=== PATIENT | female | born 1965 | race Caucasian/White ===

== ENCOUNTER 2020-11-15 14:28 | Inpatient (IN) | payer OTHER ==
[~2020-11-15] VITALS: Ht 163.8 cm; Wt 67.9 kg
[2020-11-15 14:50] LABS: ABG BASE EXCESS -2.3 MMOL/L (-2.5-2.5); ABG OXYGEN SATURATION 93 % (94-100); ABG PCO2 31 MMHG (35-45); ABG PH 7.45 (7.37-7.43); ABG PO2 66 MMHG (79-93); ABG TCO2 22.1 MMOL/L (21.0-31.0)
[2020-11-15 14:51] LABS: ALLENS TEST POSITIVE; INSPIRED O2 4 L; PATIENT TEMP 37; VENTILATOR NO
[2020-11-15] MEDS ORDERED: CEFEPIME INJECTION 1,000 MG in WATER (STERILE) FOR INJECTION 10 ML IV ONE (15:00)
[2020-11-15] MEDS ORDERED: NS IV 500 ML 500 ML IV ONE (15:00)
[2020-11-15] MEDS ORDERED: VANCOMYCIN INJECTION 1,250 MG in NS (IVPB) 250 ML IV ONE (15:00)
[2020-11-15] MEDS ORDERED: NS IV 1000 ML 1,000 ML IV SCH (15:00)
--- NOTE | 2020-11-15 15:00 | ED Respiratory ---
General Chief Complaint: Respiratory Problems Stated Complaint: SOB Nursing Triage Note: PT BROUGHT IN BY [facility] FROM [facility] FOR SOA AND LOW O2. PT WAS 71% ON RA ON ARRIVAL TO [facility]. PT IS 86% ON 2LNC ON ARRIVAL TO ED. PT STATES SHE HAS BEEN SOA FOR A MONTH. Source: patient Exam Limitations: no limitations History of Present Illness Date Seen by Provider: Nov 15, 2020 Time Seen by Provider: 14:30 Initial Comments Patient to the ER by EMS from her primary care provider with chief complaint that her PCP noticed that she was having difficulty breathing and oxygen satura tions in the 80s. She was there to do a checkup. She has been on steroids recently and recently had a case of shingles. She is having some low back pain which she associates with her coughing. She says for the past week she is having all shortness of air and coughing but did not think much of it. She has a history of hemolytic anemia and has needed transfusions in the past month or 2 was at [facility] getting transfusions. She has a thick sputum produced by her cough. She has not had any fevers or chills. No known sick contacts. She had a Covid swab at the clinic prior to coming out and was normal. EMS transported her on 4 L and set her oxygen saturations were 90 to 92%. She is not on a blood thinner and denies a history of blood clots. 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 The patient does not require supplemental oxygen at baseline. Primary care through [facility]. The patient wishes to be a full code and if she needs to be intubated she is okay with this. Allergies and Home Medications Allergies Coded Allergies: No Known Drug Allergies (Unverified , 11/15/20) Patient Home Medication List Home Medication List Reviewed: Yes Review of Systems Review of Systems Constitutional: No chills, No diaphoresis EENTM: No hearing loss, No blurred vision Respiratory: cough, phlegm, short of breath; No wheezing Cardiovascular: No chest pain, No edema, No Hx of Intervention, No palpitations Gastrointestinal: No abdominal pain; nausea; No vomiting Genitourinary: No discharge, No dysuria Musculoskeletal: back pain; No joint pain All Other Systems Reviewed Negative Unless Noted: Yes Past Fyqkjba-Hkgruv-Cuvrsh Hx Patient Social History Tobacco Use?: No Substance use?: No Alcohol Use?: No Pt feels they are or have been: No Past Medical History Surgery/Hospitalization HX: [facility] Physical Exam Vital Signs - First Documented 11/15/20 14:28 Temp 37.0 Pulse 92 Resp 42 B/P (MAP) 101/64 (76) Pulse Ox 95 O2 Delivery OxyMask O2 Flow Rate 10.00 Capillary Refill : Greater Than 3 Seconds Height: '" Weight: lbs. oz. kg; 23.00 BMI Method: General Appearance: moderate distress, other (Chronically ill) Eyes: Bilateral Eye Normal Inspection, Bilateral Eye PERRL, Bilateral Eye EOMI HEENT: PERRL/EOMI; No pharynx normal (Oropharynx is mildly dry) Neck: full range of motion, normal inspection Respiratory: lungs clear, normal breath sounds, respiratory distress (Moderate respiratory distress 25 to 30 breaths/min, oxygen saturations in the mid to high 80s on 4 L); No crackles, No rales, No wheezing Cardiovascular: normal peripheral pulses, regular rate, rhythm, no edema, no JVD Gastrointestinal: non tender, soft Neurologic/Psychiatric: alert, normal mood/affect, oriented x 3 Skin: other (Dark, almost hemosiderin stained skin with various old scars and scaly, effervescent rash on the back.) Focused Exam Sepsis Stage: Sepsis Possible Source: Pulmonary Lactate Level 11/15/20 14:38: Lactic Acid Level 0.93 Time of Focused Exam: 17:04 Respiratory: Lungs Clear, No Accessory Muscle Use, Decreased Breath Sounds, Respiratory Distress (mod) Lactic Acid Level Laboratory Tests Test 11/15/20 14:38 Lactic Acid Level 0.93 MMOL/L (0.50-2.00) Progress/Results/Core Measures Suspected Sepsis SIRS Temperature: Pulse: 92 Respiratory Rate: 42 Laboratory Tests 11/15/20 14:38: White Blood Count 13.7H Blood Pressure 101 /64 Mean: 76 11/15/20 14:38: Lactic Acid Level 0.93 Laboratory Tests 11/15/20 14:38: Creatinine 0.75, INR Comment 1.3, Platelet Count 367, Total Bilirubin 0.5 Results/Orders Lab Results Laboratory Tests Test 11/15/20 14:38 Range/Units White Blood Count 13.7 H 4.3-11.0 10^3/uL Red Blood Count 3.13 L 3.80-5.11 10^6/uL Hemoglobin 8.0 L 11.5-16.0 g/dL Hematocrit 27 L 35-52 % Mean Corpuscular Volume 86 80-99 fL Mean Corpuscular Hemoglobin 26 25-34 pg Mean Corpuscular Hemoglobin Concent 30 L 32-36 g/dL Red Cell Distribution Width 19.7 H 10.0-14.5 % Platelet Count 367 130-400 10^3/uL Mean Platelet Volume 8.0 L 9.0-12.2 fL Immature Granulocyte % (Auto) 2 % Neutrophils (%) (Auto) 87 H 42-75 % Lymphocytes (%) (Auto) 6 L 12-44 % Monocytes (%) (Auto) 3 0-12 % Eosinophils (%) (Auto) 2 0-10 % Basophils (%) (Auto) 0 0-10 % Neutrophils # (Auto) 11.9 H 1.8-7.8 X 10^3 Lymphocytes # (Auto) 0.8 L 1.0-4.0 X 10^3 Monocytes # (Auto) 0.4 0.0-1.0 X 10^3 Eosinophils # (Auto) 0.3 0.0-0.3 10^3/uL Basophils # (Auto) 0.0 0.0-0.1 10^3/uL Immature Granulocyte # (Auto) 0.3 H 0.0-0.1 10^3/uL Neutrophils % (Manual) 91 % Lymphocytes % (Manual) 3 % Monocytes % (Manual) 1 % Eosinophils % (Manual) 2 % Myelocytes % 1 % Band Neutrophils 2 % Hypochromasia SLIGHT Anisocytosis MODERATE Prothrombin Time 16.4 H 12.2-14.7 SEC INR Comment 1.3 0.8-1.4 Activated Partial Thromboplast Time 40 H 24-35 SEC D-Dimer 2.53 H 0.00-0.49 UG/ML Blood Gas Puncture Site LEFT RADIAL Blood Gas Patient Temperature 37 Arterial Blood pH 7.45 H 7.37-7.43 Arterial Blood Partial Pressure CO2 31 L 35-45 MMHG Arterial Blood Partial Pressure O2 66 L 79-93 MMHG Arterial Blood HCO3 21 L 23-27 MMOL/L Arterial Blood Total CO2 22.1 21.0-31.0 MMOL/L Arterial Blood Oxygen Saturation 93 L 94-100 % Arterial Blood Base Excess -2.3 -2.5-2.5 MMOL/L Jude Test POSITIVE Blood Gas Ventilator Setting NO Blood Gas Inspired Oxygen 4 L Sodium Level 130 L 135-145 MMOL/L Potassium Level 3.2 L 3.6-5.0 MMOL/L Chloride Level 101 98-107 MMOL/L Carbon Dioxide Level 18 L 21-32 MMOL/L Anion Gap 11 5-14 MMOL/L Blood Urea Nitrogen 10 7-18 MG/DL Creatinine 0.75 0.60-1.30 MG/DL Estimat Glomerular Filtration Rate 80 BUN/Creatinine Ratio 13 Glucose Level 84 70-105 MG/DL Lactic Acid Level 0.93 0.50-2.00 MMOL/L Calcium Level 9.7 8.5-10.1 MG/DL Corrected Calcium 10.7 H 8.5-10.1 MG/DL Total Bilirubin 0.5 0.1-1.0 MG/DL Aspartate Amino Transf (AST/SGOT) 28 5-34 U/L Alanine Aminotransferase (ALT/SGPT) 6 0-55 U/L Alkaline Phosphatase 74 40-136 U/L C-Reactive Protein High Sensitivity 20.37 H 0.00-0.50 MG/DL B-Type Natriuretic Peptide 32.5 <100.0 PG/ML Total Protein 6.8 6.4-8.2 GM/DL Albumin 2.8 L 3.2-4.5 GM/DL Procalcitonin 0.84 H <0.10 NG/ML My Orders Orders - NATHALIA FLORES Arterial Blood Gas (11/15/20 14:45) Cbc With Automated Diff (11/15/20 14:52) Comprehensive Metabolic Panel (11/15/20 14:52) Blood Culture (11/15/20 14:52) Sputum Culture (11/15/20 14:52) Urinalysis (11/15/20 14:52) Urine Culture (11/15/20 14:52) Protime With Inr (11/15/20 14:52) Partial Thromboplastin Time (11/15/20 14:52) Chest 1 View, Ap/Pa Only (11/15/20 14:52) Ed Iv/Invasive Line Start (11/15/20 14:52) Ed Iv/Invasive Line Start (11/15/20 14:52) Vital Signs Adult Sepsis Patie Q15M (11/15/20 14:52) O2 (11/15/20 14:52) Remove Rings In Anticipation O (11/15/20 14:52) Lactic Acid Analyzer (11/15/20 14:52) Ns Iv 1000 Ml (Sodium Chloride 0.9%) (11/15/20 15:00) Cefepime Injection (Maxipime Injection) (11/15/20 15:00) Vancomycin Injection (Vancomycin Injecti (11/15/20 15:00) Ed Iv/Invasive Line Start (11/15/20 14:52) Ns Iv 500 Ml (Sodium Chloride 0.9%) (11/15/20 15:00) Covid-19 External Lab Results (11/15/20 14:52) Manual Differential (11/15/20 14:38) BNP (11/15/20 15:34) Ct Angio Chest W (11/15/20 15:41) Procalcitonin (Pct) (11/15/20 16:00) Fibrin Degradation Products (11/15/20 16:00) Hs C Reactive Protein (11/15/20 16:00) Medications Given in ED Current Medications Medications Dose Ordered Sig/Lyn Route Start Time Stop Time Status Last Admin Dose Admin Cefepime HCl 1000 mg/Sterile Water 10 ml @ 200 mls/hr ONCE ONCE IV 11/15/20 15:00 11/15/20 15:02 DC 11/15/20 15:13 200 MLS/HR Sodium Chloride 500 ml @ 0 mls/hr Q0M ONCE IV 11/15/20 15:00 11/15/20 15:01 DC 11/15/20 15:12 0 MLS/HR Vancomycin HCl 1250 mg/Sodium Chloride 250 ml @ 210 mls/hr ONCE ONCE IV 11/15/20 15:00 11/15/20 16:11 DC 11/15/20 17:06 210 MLS/HR Vital Signs/I&O 11/15/20 11/15/20 14:28 14:38 Temp 37.0 Pulse 92 Resp 42 B/P (MAP) 101/64 (76) Pulse Ox 95 O2 Delivery OxyMask OxyMask O2 Flow Rate 10.00 10.00 Capillary Refill : Greater Than 3 Seconds Blood Pressure Mean: 76 Progress Note #1: Time: 14:58 Progress Note Patient is fairly profoundly hypoxic and we had to put her on 12 L by oxygen mask to maintain oxygen/in the mid 90s. It is improving. Heart rate is in the 90s to 100. Blood pressure is soft around 100/60 and she still breathing anywhere from 20 to 30 breaths a minute and becomes breathless when she has to speak more than 1 sentence. The language line was used. She says her son who accompanied her to the clinic knows more of her history and she is okay with us talking to him. Progress Note #2: Time: 15:40 Progress Note Should coverPatient's breathing about 20 breaths/min 97% on 12 L, comfortably resting. ABG reveals hypoxemia without any acidosis or respiratory CO2 retention. Suspicion for PE versus pneumonia but chest x-ray looks more like CHF. She did not have any JVD or peripheral edema but a BNP was added as well as will do a CT angiogram. She got about 1200 cc of fluid before we held her IV fluids. Initial fluid bolus of 1500 cc per a 20 cc/kg for her original septic work-up. Her son reveals further that she dropped her prednisone about a month ago because she start developing shingles. Her last admission was in March at [place]. Her hemoglobin is 8 which the son reveals is her baseline. Progress Note #3: Time: 16:57 Progress Note Chest x-ray concerning for heart failure initially and so because of patient's poor oxygenation status 40 mg Lasix was given which produced a good amount of urine. Unfortunately a CT scan revealed that her chest x-ray is more consistent with a pneumonia so we will give her a liter of fluids 250 hours since her blood pressure is borderline 100 systolic. Plan to initiate CPAP at 7 cm water pressure. ECG Initial ECG Impression Date: Nov 15, 2020 Initial ECG Impression Time: 14:00 Initial ECG Rate: 95 Initial ECG Rhythm: Normal Sinus Initial ECG Intervals: Normal Initial ECG Impression: Normal Comment Normal sinus rhythm without clinically relevant ST elevation or depression. Diagnostic Imaging Diagonstic Imaging: Xray Plain Films/CT/US/NM/MRI: chest Comments NAME: CASEYONEILLLALIT WALKER [facility] REC#: [id number] PT STATUS: REG ER : 1965 PHYSICIAN: NATHALIA FLORES MD ADMIT DATE: 11/15/20/ER Draft Date of Exam:11/15/20 CHEST 1 VIEW, AP/PA ONLY INDICATION: Sepsis. COMPARISON: None available. TECHNIQUE: Single frontal radiograph of the chest dated 11/15/2020. FINDINGS: The cardiac silhouette is enlarged. There is mild central pulmonary vascular congestion. Diffuse bilateral interstitial opacities are present with small volume pleural effusions. No pneumothorax. No acute osseous abnormality. Surgical clips within the right upper quadrant of the abdomen. IMPRESSION: Bilateral interstitial opacities and small volume pleural effusions. Findings are favored related to congestive heart failure with interstitial edema. Interstitial infiltrate is an additional consideration. Recommend clinical correlation with radiographic follow-up. Dictated on workstation # [id number] Dict: 11/15/20 1524 Trans: 11/15/20 1532 [facility] [id number] Interpreted by: JENIFER FINK MD Electronically signed by: Reviewed: Reviewed by Me Diagonstic Imaging: CT Plain Films/CT/US/NM/MRI: chest Comments No filling defects seen in the vasculature. Bilateral bases and right middle lobe with pneumonia. NAME: LALIT LAI [facility] REC#: [id number] PT STATUS: REG ER : 1965 PHYSICIAN: NATHALIA FLORES MD ADMIT DATE: 11/15/20/ER Draft Date of Exam:11/15/20 CT ANGIO CHEST W PROCEDURE: CT angiography Chest. TECHNIQUE: After intravenous administration of contrast, thin section axial CT angiography of the chest was performed. 3D MIP reconstructions were made. All CT scans use one or more of the following dose optimizing techniques: Automated exposure control, MA and/or KvP adjustment based on a patient size and exam type, or iterative reconstruction. INDICATION: Shortness of air for one month. COMPARISON: Chest radiograph from earlier same day. FINDINGS: Vasculature: No pulmonary emboli to the level of segmental arteries. Extensive respiratory motion artifact limits assessment of the segmental and subsegmental pulmonary arteries. Thoracic aorta is normal in caliber. No aortic dissection or pseudoaneurysm. Heart and mediastinum: Visualized thyroid is normal. No supraclavicular, axillary, or intra-thoracic lymphadenopathy. The heart is normal in size without pericardial effusion. Pleura: No pleural effusion or pneumothorax. Lungs and airway: No endoluminal lesion in the trachea or central bronchi. There is a mixture of septal thickening, consolidations, and ground-glass opacities throughout all five lobes, but there is a predilection for the lung bases. Upper abdomen: Allowing for the phase of contrast, no acute abnormality in the upper abdomen is seen. Musculoskeletal: No concerning osseous lesion. IMPRESSION: 1. No pulmonary emboli to the level of segmental arteries. Respiratory motion artifact limits assessment of the smaller distal pulmonary arteries. 2. No acute aortic syndrome. 3. Bilateral pulmonary consolidations could be on the basis of multifocal pneumonia versus edema. Dictated on workstation # [id number] Dict: 11/15/20 1700 Trans: 11/15/20 1710 [id number] Interpreted by: HAILEY SHEPHERD MD Electronically signed by: Reviewed: Reviewed by Me Departure Communication (Admissions) Time/Spoke to Admitting Phy: 16:55 Discussed the case with Dr. Gomez and she agrees to admit the patient to the ICU. CPAP for now, IV fluids antibiotics. Time/Spoke to Consulting Phy: 17:05 Left Message with [place] 1735: Discussed the case with the eICU doctor from [facility] and she agrees with the plan. She agrees based on our interpretation that it sounds more like bacterial pneumonia after being on steroids and agrees with not reinitiating steroids as it does not appear to be an inflammatory lung injury such as from still disease. Impression Primary Impression: Acute pneumonia Additional Impressions: Acute respiratory failure with hypoxemia Sepsis Qualified Codes: A41.9 - Sepsis, unspecified organism; R65.20 - Severe sepsis without septic shock; J96.01 - Acute respiratory failure with hypoxia Disposition: ADMITTED INPATIENT Condition: Stable Admissions Decision to Admit Reason: Admit from ER (General) Decision to Admit/Date: Nov 15, 2020 Time/Decision to Admit Time: 16:00 Departure-Patient Inst. Referrals: [facility] (PCP/Family) Primary Care Physician NATHALIA FLORES Nov 15, 2020 15:00
[2020-11-15 15:02] LABS: BASOPHILS % (AUTO) 0 % (0-10); EOSINOPHILS # (AUTO) 0.3 10^3/uL (0.0-0.3); EOSINOPHILS % (AUTO) 2 % (0-10); HEMATOCRIT 27 % (35-52); LYMPHOCYTES # (AUTO) 0.8 X 10^3 (1.0-4.0); LYMPHOCYTES % (AUTO) 6 % (12-44); MEAN CORPUSCULAR HEMOGLOBIN 26 pg (25-34); MEAN CORPUSCULAR HGB CONC 30 g/dL (32-36); MEAN CORPUSCULAR VOLUME 86 fL (80-99); MONOCYTES # (AUTO) 0.4 X 10^3 (0.0-1.0); MONOCYTES % (AUTO) 3 % (0-12); NEUTROPHILS # (AUTO) 11.9 X 10^3 (1.8-7.8); NEUTROPHILS % (AUTO) 87 % (42-75); PLATELET COUNT 367 10^3/uL (130-400); WHITE BLOOD COUNT 13.7 10^3/uL (4.3-11.0)
[2020-11-15 15:07] LABS: ALBUMIN 2.8 GM/DL (3.2-4.5); POTASSIUM 3.2 MMOL/L (3.6-5.0)
[2020-11-15 15:08] LABS: CALCIUM 9.7 MG/DL (8.5-10.1)
[2020-11-15 15:10] LABS: TOTAL PROTEIN 6.8 GM/DL (6.4-8.2)
[2020-11-15 15:11] LABS: BILIRUBIN,TOTAL 0.5 MG/DL (0.1-1.0)
[2020-11-15 15:13] LABS: CREATININE SERUM 0.75 MG/DL (0.60-1.30)
[2020-11-15 15:14] LABS: INR 1.3 (0.8-1.4); PROTHROMBIN TIME PATIENT 16.4 SEC (12.2-14.7)
[2020-11-15 15:19] LABS: BAND NEUTROPHILS 2 %; EOSINOPHILS % (MANUAL) 2 %; LYMPHOCYTES % (MANUAL) 3 %; MONOCYTES % (MANUAL) 1 %; NEUTROPHILS % (MANUAL) 91 %
[2020-11-15 15:20] LABS: ANISOCYTOSIS MODERATE; HYPOCHROMASIA SLIGHT; MYELOCYTES % 1 %
--- NOTE | 2020-11-15 15:32 | Diagnostic Imaging Report ---
INDICATION: Sepsis. COMPARISON: None available. TECHNIQUE: Single frontal radiograph of the chest dated 11/15/2020. FINDINGS: The cardiac silhouette is enlarged. There is mild central pulmonary vascular congestion. Diffuse bilateral interstitial opacities are present with small volume pleural effusions. No pneumothorax. No acute osseous abnormality. Surgical clips within the right upper quadrant of the abdomen. IMPRESSION: Bilateral interstitial opacities and small volume pleural effusions. Findings are favored related to congestive heart failure with interstitial edema. Interstitial infiltrate is an additional consideration. Recommend clinical correlation with radiographic follow-up. Dictated by: Dictated on workstation # [id number]
[2020-11-15] MEDS ORDERED: FUROSEMIDE 40 MG/4 ML INJ (LASIX) ONE (16:12)
[2020-11-15] MEDS ORDERED: IOHEXOL 350 MG/ML 100 ML (OMNIPAQUE 350) VIAL IV ONE (16:15)
[2020-11-15] MEDS ORDERED: HOLD METFORMIN - RECEIVED CONTRAST 20 ML VIAL IV SCH (16:15)
[2020-11-15] MEDS ORDERED: FUROSEMIDE 40 MG/4 ML INJ (LASIX) IVP ONE (16:30)
[2020-11-15 16:55] LABS: BILIRUBIN,URINE NEGATIVE (NEGATIVE); CLARITY,URINE CLEAR; COLOR,URINE YELLOW; GLUCOSE, URINE (UA) NEGATIVE (NEGATIVE); KETONES,URINE NEGATIVE (NEGATIVE); LEUKOCYTE ESTERASE ,URINE NEGATIVE (NEGATIVE); NITRITE,URINE NEGATIVE (NEGATIVE); PROTEIN,URINE NEGATIVE (NEGATIVE)
[2020-11-15] MEDS ORDERED: LACTATED RINGERS 1,000 ML IV ONE ×2 (16:59→17:15)
[2020-11-15 17:06] LABS: AMORPHOUS SEDIMENT,UR RARE AMOR URATES /LPF; BACTERIA,URINE TRACE /HPF; HYALINE CASTS, URINE 0-2 /LPF; RBC,URINE 0-2 /HPF; WBC,URINE 0-2 /HPF
[2020-11-15 17:10] VITALS: BP 98/54
--- NOTE | 2020-11-15 17:10 | Diagnostic Imaging Report ---
PROCEDURE: CT angiography Chest. TECHNIQUE: After intravenous administration of contrast, thin section axial CT angiography of the chest was performed. 3D MIP reconstructions were made. All CT scans use one or more of the following dose optimizing techniques: Automated exposure control, MA and/or KvP adjustment based on a patient size and exam type, or iterative reconstruction. INDICATION: Shortness of air for one month. COMPARISON: Chest radiograph from earlier same day. FINDINGS: Vasculature: No pulmonary emboli to the level of segmental arteries. Extensive respiratory motion artifact limits assessment of the segmental and subsegmental pulmonary arteries. Thoracic aorta is normal in caliber. No aortic dissection or pseudoaneurysm. Heart and mediastinum: Visualized thyroid is normal. No supraclavicular, axillary, or intra-thoracic lymphadenopathy. The heart is normal in size without pericardial effusion. Pleura: No pleural effusion or pneumothorax. Lungs and airway: No endoluminal lesion in the trachea or central bronchi. There is a mixture of septal thickening, consolidations, and ground-glass opacities throughout all five lobes, but there is a predilection for the lung bases. Upper abdomen: Allowing for the phase of contrast, no acute abnormality in the upper abdomen is seen. Musculoskeletal: No concerning osseous lesion. IMPRESSION: 1. No pulmonary emboli to the level of segmental arteries. Respiratory motion artifact limits assessment of the smaller distal pulmonary arteries. 2. No acute aortic syndrome. 3. Bilateral pulmonary consolidations could be on the basis of multifocal pneumonia versus edema. Dictated by: Dictated on workstation # [id number]
[2020-11-15] MEDS ORDERED: CATHETER FLUSH 10 ML SYR IV PRN (18:45)
[2020-11-15] MEDS ORDERED: EPINEPHrine 1 MG INJECTION 4 MG in NS (IVPB) 248 ML IV SCH (18:45)
[2020-11-15] MEDS ORDERED: ONDANSETRON 4 MG/2 ML (SDV) Z0FRAN IV PRN (18:45)
[2020-11-15] MEDS ORDERED: LACTATED RINGERS 1,000 ML IV SCH (18:45)
[2020-11-15] MEDS: VASOPRESSIN INJECTION 20 UNIT in NS (IVPB) 100 ML IV SCH (19:22)
[2020-11-15] MEDS: NOREPINEPHRINE 8 MG/250 ML 250 ML IV SCH (19:22)
[2020-11-15] MEDS ORDERED: KCL 20 MEQ TAB (K-DUR) PO NR (19:45)
[2020-11-15 20:05] VITALS: BP 101/64
[2020-11-15 20:15] VITALS: BP 101/64
[2020-11-15] MEDS: ENOXAPARIN 40 MG/0.4 ML (LOVENOX) SYR SC SCH (20:17)
[2020-11-15] MEDS: CEFEPIME 1,000 MG/SWFI 10 ML IV PUSH IV SCH ×2 (20:26)
[2020-11-15] MEDS ORDERED: RT-ALBUTEROL HFA 8.5 GM INHALER IH PRN (20:30)
[2020-11-15] MEDS ORDERED: RT-ALBUTEROL HFA 8.5 GM INHALER IH SCH (21:00)
[2020-11-15] MEDS: LACTATED RINGERS 1,000 ML IV SCH ×2 (21:00→21:01)
[2020-11-15] MEDS ORDERED: RT-ALBUTEROL SULF 2.5 MG/3 ML PRE-MIX VIAL ONE (22:44)
[2020-11-15 22:46] VITALS: BP 115/71
[2020-11-15] MEDS: RT-ALBUTEROL SULF 2.5 MG/3 ML PRE-MIX VIAL INH PRN (22:46)
[2020-11-16] MEDS: LACTATED RINGERS 1,000 ML IV SCH ×4 (01:20→17:48)
[2020-11-16 03:25] LABS: BASOPHILS % (AUTO) 0 % (0-10); EOSINOPHILS # (AUTO) 0.8 10^3/uL (0.0-0.3); EOSINOPHILS % (AUTO) 6 % (0-10); HEMATOCRIT 25 % (35-52); HEMOGLOBIN 7.1 g/dL (11.5-16.0); LYMPHOCYTES # (AUTO) 0.6 10^3/uL (1.0-4.0); LYMPHOCYTES % (AUTO) 4 % (12-44); MEAN CORPUSCULAR HEMOGLOBIN 25 pg (25-34); MEAN CORPUSCULAR HGB CONC 28 g/dL (32-36); MEAN CORPUSCULAR VOLUME 88 fL (80-99); MONOCYTES # (AUTO) 0.3 10^3/uL (0.0-1.0); MONOCYTES % (AUTO) 2 % (0-12); NEUTROPHILS # (AUTO) 11.4 10^3/uL (1.8-7.8); NEUTROPHILS % (AUTO) 86 % (42-75); PLATELET COUNT 337 10^3/uL (130-400); WHITE BLOOD COUNT 13.3 10^3/uL (4.3-11.0)
[2020-11-16 03:55] LABS: ALBUMIN 2.5 GM/DL (3.2-4.5); POTASSIUM 3.7 MMOL/L (3.6-5.0)
[2020-11-16 03:56] LABS: CALCIUM 9.3 MG/DL (8.5-10.1)
[2020-11-16 03:58] LABS: TOTAL PROTEIN 6.2 GM/DL (6.4-8.2)
[2020-11-16 04:00] LABS: BILIRUBIN,TOTAL 0.4 MG/DL (0.1-1.0)
[2020-11-16 04:01] LABS: CREATININE SERUM 0.66 MG/DL (0.60-1.30); PHOSPHORUS 3.6 MG/DL (2.3-4.7)
[2020-11-16 04:04] LABS: MAGNESIUM 1.6 MG/DL (1.6-2.4)
[2020-11-16] MEDS: CEFEPIME 1,000 MG/SWFI 10 ML IV PUSH IV SCH ×8 (04:24→22:18)
[2020-11-16] MEDS: VANCOMYCIN 1 GM/NS 250 ML IVPB IV SCH ×4 (04:24→17:47)
[2020-11-16] MEDS: MAGNESIUM 1 GM/100 ML IVPB 100 ML IV SCH (04:25)
[2020-11-16] MEDS: VASOPRESSIN INJECTION 20 UNIT in NS (IVPB) 100 ML IV SCH ×3 (04:35→20:28)
[2020-11-16] MEDS: POTASSIUM CL 10MEQ/50ML IVPB 50 ML IV SCH (04:52)
[2020-11-16] MEDS: KCL 20 MEQ TAB (K-DUR) PO SCH (04:53)
[2020-11-16] MEDS: LEVOTHYROXINE 100 MCG (LEVOTHROID) TAB PO SCH (06:45)
[2020-11-16 07:04] VITALS: BP 109/62
[2020-11-16] MEDS: RT-ALBUTEROL SULF 2.5 MG/3 ML PRE-MIX VIAL INH SCH ×2 (07:04→20:03)
--- NOTE | 2020-11-16 07:06 | Diagnostic Imaging Report ---
EXAMINATION: Chest 1 view HISTORY: Pneumonia COMPARISON: 11/15/2020 FINDINGS: Heart size and pulmonary vasculature are normal. Increased aeration of the lungs compared to 11/15/2020. There are diffuse interstitial opacities seen throughout both lungs. No pleural effusion or pneumothorax. The osseous structures are intact. IMPRESSION: 1. Increased aeration of lungs with diffuse interstitial opacities throughout both lungs compatible with pulmonary edema or multifocal pneumonia. Dictated by: Dictated on workstation # [id number]
--- NOTE | 2020-11-16 08:25 | History & Physical ---
ANGELIQUE FERNANDEZ 11/16/20 0825: HPI History of Present Illness: Patient goes by Kaylynn and is a 55 year old female whe is in the hospital due to acute respiratory distress. She has been feeling short of breath and weak for the past month. She fell a month and a half ago upon standing and said she just woke up on the floor. She didn't see a doctor at that time. Yesterday at a doctors appointment she was having labored breathing and low Oxygen saturation that ultimately led her to going to the ER and being admitted. She is also experiencing numbness and tingling bilaterally in both her hands and feet. It began in just the tips of her digits but has been spreading proximally. This has been slowly occuring for a while now. She has had some nauseau and vomiting at home, but none here. She feels like she has had quite a bit of flem. Main concern at this time is the shortness of breath and fatigue. Source: editorial assistant Exam Limitations: language barrier (used editorial assistant.) Time Seen by Provider: 07:30 Attending Physician Thom Gomez MD [place] [place] [facility] Consult Date of Admission Nov 15, 2020 at 16:00 Home Medications Home Medications Reviewed patient Home Medication Reconciliation performed by pharmacy medication reconciliations nitriles lab technician and/or nursing. Patients Allergies have been reviewed. Allergies Coded Allergies: No Known Drug Allergies (Unverified , 11/15/20) ANP-[id number] Hx Patient Social History Marrital Status: Smoking Status: Never a Smoker Alcohol Use?: No Have you traveled recently?: Yes Past Medical History -Hemolytic Anemia requiring blood transfusions in the past. -Hypothyroidism treated with Levothyroxine -Recent shingles treated with steroids Family Medical History Significant Family History: Diabetes (Mother) Review of Systems ([facility]) EENTM: No hearing loss, No vision loss Respiratory: cough, dyspnea on exertion, phlegm, short of breath Cardiovascular: No palpitations; syncope (fell at home 1.5 months ago. All she remembers is waking up on the floor.) Gastrointestinal: No constipation, No diarrhea; nausea (Prior to hospitalization, hasn't had any here.), vomiting (Prior to hospitalization, hasn't had any here.) Genitourinary: No dysuria, No incontinence Musculoskeletal: other (Patient reported a numbness and tingle bilaterally in both hands and feet.) Skin: no symptoms reported Psychiatric/Neurological: No Symptoms Reported Physical Exam-([facility]) Physical Exam Vital Signs VS - Last 72 Hours, by Label 11/15/20 11/15/20 11/15/20 11/15/20 14:28 14:38 17:10 18:10 Temp 37.0 Pulse 92 90 91 Resp 42 34 20 B/P (MAP) 101/64 (76) 100/57 Pulse Ox 95 99 97 O2 Delivery OxyMask OxyMask NIV Bilevel O2 Flow Rate 10.00 10.00 40.00 11/15/20 11/15/20 11/15/20 11/15/20 18:55 18:55 18:58 19:00 Temp 35.9 Pulse 90 O2 Delivery NIV CPAP NIV CPAP 11/15/20 11/15/20 11/15/20 11/15/20 20:00 20:05 20:08 20:15 Temp 37.0 36.6 37.0 Pulse 92 92 Pulse Ox 95 95 O2 Delivery NIV CPAP FiO2 100 100 11/15/20 11/15/20 11/15/20 11/15/20 21:00 22:00 22:46 23:00 Pulse 89 78 89 87 Resp 15 20 28 28 B/P (MAP) 117/72 (87) 111/74 (86) 125/68 (87) Pulse Ox 99 100 100 98 O2 Delivery NIV CPAP NIV CPAP NIV CPAP O2 Flow Rate 40.00 11/16/20 11/16/20 11/16/20 11/16/20 00:00 00:00 00:00 01:00 Temp 36.4 Pulse 92 92 Resp 26 B/P (MAP) 116/67 (83) Pulse Ox 97 O2 Delivery NIV CPAP NIV CPAP NIV CPAP 11/16/20 11/16/20 11/16/20 11/16/20 01:00 02:00 03:00 04:00 Pulse 92 92 96 94 Resp 20 22 22 26 B/P (MAP) 124/72 (89) 127/73 (91) 111/61 (78) 100/56 (71) Pulse Ox 93 98 98 98 O2 Delivery NIV CPAP NIV CPAP NIV CPAP NIV CPAP 11/16/20 11/16/20 11/16/20 11/16/20 04:00 04:00 04:35 05:00 Temp 36.3 Pulse 84 91 Resp 28 B/P (MAP) 111/61 (78) Pulse Ox 96 O2 Delivery NIV CPAP NIV CPAP NIV CPAP 11/16/20 11/16/20 11/16/20 11/16/20 06:00 07:00 07:00 07:04 Pulse 87 87 96 93 Resp 27 30 27 B/P (MAP) 102/61 (75) 109/62 (73) Pulse Ox 98 98 98 O2 Delivery NIV CPAP NIV CPAP O2 Flow Rate 25.00 11/16/20 11/16/20 11/16/20 11/16/20 07:15 07:27 07:43 08:00 Temp 36.4 Pulse 94 Resp 28 B/P (MAP) 97/51 (66) Pulse Ox 97 91 91 O2 Delivery Nasal Cannula Nasal Cannula Nasal Cannula O2 Flow Rate 2.00 2.00 2.00 11/16/20 11/16/20 11/16/20 11/16/20 09:00 10:00 10:05 11:00 Pulse 92 80 96 Resp 13 34 B/P (MAP) 109/66 (80) 122/79 (93) 115/62 (79) Pulse Ox 95 96 91 O2 Delivery Nasal Cannula Nasal Cannula Nasal Cannula Nasal Cannula O2 Flow Rate 2.00 2.00 4.00 4.00 11/16/20 11/16/20 12:00 13:00 Pulse 92 Pulse Ox 90 O2 Delivery Nasal Cannula O2 Flow Rate 6.00 Capillary Refill : Greater Than 3 Seconds Eyes: Bilateral Eye Normal Inspection, Bilateral Eye PERRL, Bilateral Eye EOMI HEENT: PERRL/EOMI, pharynx normal Respiratory: crackles (small amount heard in both lower lobes) Cardiovascular: normal peripheral pulses, no edema, no murmur Gastrointestinal: normal bowel sounds, non tender, soft, no pulsatile mass Extremities: no pedal edema, no calf tenderness Neurologic/Psychiatric: cook syrup maker II-XII nml as tested, alert, oriented x 3, sensory deficit (numbness and tingling bilaterally in hands and feet) Skin: normal color, warm/dry Assessment/Plan Assessment/Plan Admission Status: Inpatient Order (span 2 midnights) Reason for Inpatient Admission: Acute Respiratory Compromise Assessment & Plan Acute Respiratory Compromise -Chest X ray showed possible multifocalpneumonia. Sputum sample has been sent for culture. -Currently treating empirically with Vancomycin and Cefepime - Supplement Oxygen to maintain adequate O2 saturation. -Have Echocardiogram performed in order to rule out CHF. Anemia -Pt. has history of hemolytic anemia, bilirubin is within normal ranges. -If Hgb drops below 7 then do blood transfusion. Bloody stools -Consider referral for colonoscopy. Leukocytosis -Believed to be due to possible pneumonia. -Per chart review patient has recently had steroid treatment for shingles. Could be elevated from the steroids. THOM GOMEZ MD 11/16/20 1419: Home Medications Allergies Coded Allergies: No Known Drug Allergies (Unverified , 11/15/20) Review of Systems ([facility]) Constitutional: malaise Physical Exam-([facility]) Physical Exam General Appearance: WD/WN, no apparent distress Respiratory: no respiratory distress, rales Cardiovascular: regular rate, rhythm, no murmur Extremities: no pedal edema Neurologic/Psychiatric: alert, normal mood/affect Skin: warm/dry Assessment/Plan Assessment/Plan (1) Acute respiratory failure with hypoxemia Status: Acute Assessment & Plan: Suspect secondary to pneumonia, but has atypical presentation and apparent history of rheumatologic disease as well. Negative for COVID, reports she had an infection about a year ago. Respiratory status markedly improved overnight with antibiotic treatment. Did receive one dose of lasix in ER as well. (2) Acute pneumonia Status: Acute Assessment & Plan: Cefepime and vancomycin (3) Hypothyroidism Status: Chronic Assessment & Plan: Resume home med (4) Hemolytic anemia Status: Chronic Assessment & Plan: Uncertain etiology, per family report, her baseline hemoglobin is around 8. (5) Sepsis Status: Acute Assessment & Plan: Secondary to pneumonia. Qualifiers: Qualified Codes: A41.9 - Sepsis, unspecified organism; R65.20 - Severe sepsis without septic shock; J96.01 - Acute respiratory failure with hypoxia (6) DVT prophylaxis Status: Acute Assessment & Plan: SCDs, no pharmacologic for now, has had bloody stool and low hemoglobin. Supervisory-Addendum Brief Verification & Attestation Participated in pt care: history, MDM, physical Personally performed: exam, history, MDM Care discussed with: Medical Student Procedures: n/a I did my own history and exam on this patient today, agree with student documented history, see my physical exam for my exam and problem list for my assessment and plan. ANGELIQUE FERNANDEZ Nov 16, 2020 08:25 THOM GOMEZ MD Nov 16, 2020 14:19
[2020-11-16] MEDS: ENOXAPARIN 40 MG/0.4 ML (LOVENOX) SYR SC SCH ×2 (09:05→19:38)
[2020-11-16] MEDS ORDERED: ONDA-105 PO (10:32)
[2020-11-16] MEDS ORDERED: LEVO100T7 PO (10:32)
[2020-11-16] MEDS ORDERED: ERGO1250 PO (10:32)
--- NOTE | 2020-11-16 12:14 | Tele-ICU Consult ---
History of Present Illness History of Present Illness Date Seen by Provider: Nov 16, 2020 Time Seen by Provider: 11:05 History of Present Illness She is a 55-year-old female with unknown past medical history apparently has been feeling weak. Apparently she has been on the steroids recently but it was discontinued due to shingles. She presented to the PCPs office with the difficulty in breathing and found to have a low oxygen saturation. Hence EMS was called and transported to the emergency room. Reportedly an outside swab for Covid test is negative but it is not clear whether it is a rapid or PCR. Ch est x-ray and CT scanning of the chest in the emergency room showed bilateral extensive infiltrates especially at the bases suggestive of multifocal pneumonia however in the current situation of for Covid19 epidemic it is highly concerning for Covid pneumonia. I have discussed with the same with the RN and advised her to get a repeat nasal swab for influenza as well as Covid19 with PCR. She is p laced on supplemental oxygen and currently she is resting comfortably with a 4 L of oxygen. His blood pressure has been stable. Lovenox is held due to bloody stools. Allergies and Home Medications Allergies Coded Allergies: No Known Drug Allergies (Unverified , 11/15/20) Home Medications Ergocalciferol (Vitamin D2) 1,250 Mcg Capsule, 1,250 MCG PO SUN, (Reported) Levothyroxine Sodium 100 Mcg Tablet, 100 MCG PO DAILY, (Reported) Ondansetron HCl 4 Mg Tablet, 4 MG PO Q8H PRN for NAUSEA/VOMITING-1ST LINE, (Reported) Past Medical/Social/Family Hx Patient Social History Tobacco Use?: No Smoking Status: Never a Smoker Smokeless Tobacco Frequency: Never a User Use of E-Cig and/or Vaping dev: No Substance use?: No Alcohol Use?: No Pt stated abuse/neglect: No Immunizations Up To Date Influenza Vaccine Up-to-Date: No; Not Current First/Initial COVID19 Vaccinat: NOT VACCINATED Tetanus Booster (TDap): Less Than 5 Years Hepatitis A: No Hepatitis B: No TB Skin Test: Negative Current Status status: No status: No Advance Directives: No Communicates: Verbally Primary Language: Hungarian Preferred Spoken Language: Hungarian Is interpretation needed?: Yes Sensory deficits: Vision impairment Implanted or Applied Medical D: None Past Medical History -Hemolytic Anemia requiring blood transfusions in the past. -Hypothyroidism treated with Levothyroxine Review of Systems Constitutional: other (ROS PER ATTENDING PHYSICIAN) Sepsis Event Evaluation Height, Weight, BMI Height: '" Weight: lbs. oz. kg; 24.00 BMI Method: Exam Exam Patient acknowledged, consented, and participated in this virtual visit which was conducted using real time audio/video Vital Signs Date Time Temp Pulse Resp B/P (MAP) Pulse Ox O2 Delivery O2 Flow Rate FiO2 11/16/20 12:00 90 Nasal Cannula 6.00 11/16/20 11:00 96 34 115/62 (79) 91 Nasal Cannula 4.00 11/16/20 10:05 Nasal Cannula 4.00 11/16/20 10:00 80 13 122/79 (93) 96 Nasal Cannula 2.00 11/16/20 09:00 92 109/66 (80) 95 Nasal Cannula 2.00 11/16/20 08:00 94 28 97/51 (66) 91 Nasal Cannula 2.00 11/16/20 07:43 91 Nasal Cannula 2.00 11/16/20 07:27 36.4 11/16/20 07:15 97 Nasal Cannula 2.00 11/16/20 07:04 93 27 98 25.00 11/16/20 07:00 96 11/16/20 07:00 87 30 109/62 (73) 98 NIV CPAP 11/16/20 06:00 87 27 102/61 (75) 98 NIV CPAP 11/16/20 05:00 91 28 111/61 (78) 96 NIV CPAP 11/16/20 04:35 84 11/16/20 04:00 36.3 NIV CPAP 11/16/20 04:00 NIV CPAP 11/16/20 04:00 94 26 100/56 (71) 98 NIV CPAP 11/16/20 03:00 96 22 111/61 (78) 98 NIV CPAP 11/16/20 02:00 92 22 127/73 (91) 98 NIV CPAP 11/16/20 01:00 92 20 124/72 (89) 93 NIV CPAP 11/16/20 01:00 92 11/16/20 00:00 36.4 NIV CPAP 11/16/20 00:00 NIV CPAP 11/16/20 00:00 92 26 116/67 (83) 97 NIV CPAP 11/15/20 23:00 87 28 125/68 (87) 98 NIV CPAP 11/15/20 22:46 89 28 100 40.00 11/15/20 22:00 78 20 111/74 (86) 100 NIV CPAP 11/15/20 21:00 89 15 117/72 (87) 99 NIV CPAP 11/15/20 20:15 37.0 92 95 100 11/15/20 20:08 36.6 11/15/20 20:05 37.0 92 95 100 11/15/20 20:00 NIV CPAP 11/15/20 19:00 90 11/15/20 18:58 NIV CPAP 11/15/20 18:55 35.9 11/15/20 18:55 NIV CPAP 11/15/20 18:10 91 20 100/57 97 NIV Bilevel 11/15/20 17:10 90 34 99 40.00 11/15/20 14:38 OxyMask 10.00 11/15/20 14:28 37.0 92 42 101/64 (76) 95 OxyMask 10.00 I & O 11/16/20 07:00 Intake Total 6080 ml Output Total 2579 ml Balance 3501 ml Height & Weight Height: '" Weight: lbs. oz. kg; 24.00 BMI Method: General Appearance: Other (per RN) Respiratory: Lungs Clear, No Accessory Muscle Use, Decreased Breath Sounds, Respiratory Distress (mod) Capillary Refill: Greater Than 3 Seconds Gastrointestinal: normal bowel sounds, non tender, soft, no pulsatile mass Other comments PE PER ATTENDING PHYSICIAN Results Lab Laboratory Tests 11/15/20 14:38 11/16/20 03:05 Meds reviewed Radiology cxr reviewed Assessment/Plan Assessment/Plan 1. Acute hypoxic respiratory failure due to pneumonia 2. Multifocal pneumonia needs to rule out Covid19 pneumonia as well as community-acquired pneumonia. 3. Recent history of shingles 4. History of still's disease. Recommendations 1. Continue oxygenation with nasal cannula 2. Broad-spectrum IV antibiotics 3. I would suggest isolation for Covid19 as well as shingles until PCR test is back. 4. Suggest hydration very cautiously. 5. Check an echocardiogram to rule out any left ventricular dysfunction. 6. Get more info regarding stills disease and to treat appropriately. 7. Per patient she is a full code. Critical Care: Critically Ill Patient Time spent with patient (mins): 45 SADAF BECK MD Nov 16, 2020 12:14
[2020-11-16] MEDS: NOREPINEPHRINE 8 MG/250 ML 250 ML IV SCH (15:44)
[2020-11-16] MEDS: ACETAMINOPHEN 325 MG TABLET PO PRN (19:38)
[2020-11-16 20:03] VITALS: BP 142/78
[2020-11-17] MEDS: LACTATED RINGERS 1,000 ML IV SCH ×4 (01:06→20:31)
[2020-11-17] MEDS: VASOPRESSIN INJECTION 20 UNIT in NS (IVPB) 100 ML IV SCH ×3 (04:06→22:12)
[2020-11-17 04:16] LABS: BASOPHILS % (AUTO) 0 % (0-10); EOSINOPHILS % (AUTO) 13 % (0-10); HEMATOCRIT 26 % (35-52); HEMOGLOBIN 7.2 g/dL (11.5-16.0); LYMPHOCYTES # (AUTO) 0.5 10^3/uL (1.0-4.0); LYMPHOCYTES % (AUTO) 6 % (12-44); MEAN CORPUSCULAR HEMOGLOBIN 25 pg (25-34); MEAN CORPUSCULAR HGB CONC 27 g/dL (32-36); MEAN CORPUSCULAR VOLUME 90 fL (80-99); MEAN PLATELET VOLUME 8.2 fL (9.0-12.2); MONOCYTES # (AUTO) 0.2 10^3/uL (0.0-1.0); MONOCYTES % (AUTO) 2 % (0-12); NEUTROPHILS # (AUTO) 6.1 10^3/uL (1.8-7.8); NEUTROPHILS % (AUTO) 78 % (42-75); PLATELET COUNT 299 10^3/uL (130-400); WHITE BLOOD COUNT 7.9 10^3/uL (4.3-11.0)
[2020-11-17] MEDS: CEFEPIME 1,000 MG/SWFI 10 ML IV PUSH IV SCH ×8 (04:19→23:25)
[2020-11-17 04:30] LABS: ALBUMIN 2.3 GM/DL (3.2-4.5); POTASSIUM 3.5 MMOL/L (3.6-5.0)
[2020-11-17 04:32] LABS: CALCIUM 9.1 MG/DL (8.5-10.1)
[2020-11-17 04:33] LABS: TOTAL PROTEIN 5.7 GM/DL (6.4-8.2)
[2020-11-17 04:34] LABS: BILIRUBIN,TOTAL 0.3 MG/DL (0.1-1.0)
[2020-11-17 04:36] LABS: PHOSPHORUS 3.4 MG/DL (2.3-4.7)
[2020-11-17 04:37] LABS: CREATININE SERUM 0.61 MG/DL (0.60-1.30)
[2020-11-17 04:39] LABS: MAGNESIUM 1.8 MG/DL (1.6-2.4)
[2020-11-17] MEDS: KCL 20 MEQ TAB (K-DUR) PO SCH (04:46)
[2020-11-17] MEDS: POTASSIUM CL 10MEQ/50ML IVPB 50 ML IV SCH ×3 (04:46→05:03)
[2020-11-17] MEDS: MAGNESIUM 1 GM/100 ML IVPB 100 ML IV SCH (04:46)
[2020-11-17] MEDS: LEVOTHYROXINE 100 MCG (LEVOTHROID) TAB PO SCH (05:57)
[2020-11-17] MEDS: VANCOMYCIN 1 GM/NS 250 ML IVPB IV SCH ×4 (05:57→17:27)
[2020-11-17] MEDS: RT-ALBUTEROL SULF 2.5 MG/3 ML PRE-MIX VIAL INH SCH ×2 (06:59→20:33)
[2020-11-17] MEDS: ENOXAPARIN 40 MG/0.4 ML (LOVENOX) SYR SC SCH (07:10)
[2020-11-17] MEDS ORDERED: LEVOTHYROXINE 100 MCG (LEVOTHROID) TAB PO SCH (09:00)
--- NOTE | 2020-11-17 10:57 | Tele-ICU Progress Note ---
Subjective Date Seen by a Provider: Nov 17, 2020 Time Seen by a Provider: 10:10 Subjective/Events-last exam This virtual visit was conducted using real time audio/video. Thank you for asking us to see this patient for respiratory insufficiency and distress due to pna/sepsis.. HPC: Recent events: Off pressors. PE: Resting comfortably. VSS O2 sat 97% on 15 LPM NC. HEENT: No obvious masses, adenopathy or JVD. Chest: clear to auscultation. CV: RRR S1 S2 No murmur or added sounds. Abd: Non-tender. Bowel sounds Y. : Unremarkable. Bobby Y. SPEECH AND LANGUAGE TUTOR/psychiatric: Alert and oriented, grossly intact. No obvious focal findings. Extremities: No edema. Capillary refill < 3 seconds. Skin: unremarkable. Results: Decreased Hb 7.2 Na 134 K 3.5. A/P: Respiratory insufficiency/distress: wean O2 as pedro. Available chart/ vitals / labs /images reviewed. Video assessment done using teleICU camera, rest of exam as per RN. Monitor for increasing oxygenation needs. Cont abx., albut., Sergio. Critical Care: critically ill patient. Doing better. Possible transfer. Discussed with JEFF Sams. Asked RN to reach out to eICU if any questions or concerns later. Time spent with patient/coordination of care with other health professionals (mins):15 Sepsis Event Evaluation Height, Weight, BMI Height: '" Weight: lbs. oz. kg; 24.00 BMI Method: Focused Exam Lactate Level 11/15/20 14:38: Lactic Acid Level 0.93 11/15/20 19:25: Lactic Acid Level 0.86 Time of Focused Exam: 17:04 Exam Exam Patient acknowledged, consented, and participated in this virtual visit which w as conducted using real time audio/video Vital Signs Date Time Temp Pulse Resp B/P (MAP) Pulse Ox O2 Delivery O2 Flow Rate FiO2 11/17/20 10:00 104 37 119/68 (85) 97 High Flow N/C 15.00 11/17/20 09:00 103 113/91 (98) 95 High Flow N/C 15.00 11/17/20 08:39 High Flow N/C 15.00 11/17/20 08:00 86 33 120/66 (80) 94 Nasal Cannula 5.00 11/17/20 07:56 Nasal Cannula 5.00 11/17/20 07:56 97 Nasal Cannula 6.00 11/17/20 07:00 89 36 126/68 (84) 93 Nasal Cannula 6.00 11/17/20 07:00 85 11/17/20 06:59 Nasal Cannula 7.00 93 11/17/20 06:00 82 28 124/67 (86) 98 Nasal Cannula 6.00 11/17/20 05:36 Nasal Cannula 6.00 11/17/20 05:00 75 28 116/61 (79) 98 Nasal Cannula 5.00 11/17/20 04:00 96 Nasal Cannula 5.00 11/17/20 04:00 36.6 11/17/20 04:00 81 27 115/66 (82) 96 Nasal Cannula 5.00 11/17/20 03:00 75 32 105/62 (76) 96 Nasal Cannula 5.00 11/17/20 02:00 75 27 104/71 (82) 96 Nasal Cannula 5.00 11/17/20 01:00 75 21 110/67 (81) 99 Nasal Cannula 5.00 11/17/20 01:00 80 11/17/20 00:00 76 24 103/55 (71) 98 Nasal Cannula 5.00 11/17/20 00:00 36.8 11/17/20 00:00 95 Nasal Cannula 5.00 11/16/20 23:00 79 24 105/59 (74) 98 Nasal Cannula 5.00 11/16/20 22:22 Nasal Cannula 5.00 11/16/20 22:00 93 23 120/68 (85) 97 NIV CPAP 25.00 11/16/20 21:00 105 25 111/59 (76) 97 NIV CPAP 25.00 11/16/20 20:03 113 31 94 25.00 11/16/20 20:00 95 NIV CPAP 25 11/16/20 20:00 109 24 142/78 (99) 97 NIV CPAP 25.00 11/16/20 19:43 38.1 11/16/20 19:30 37.8 11/16/20 19:00 103 33 152/83 (106) 94 NIV CPAP 25.00 11/16/20 19:00 102 11/16/20 18:00 101 23 141/89 (106) 92 NIV CPAP 25.00 11/16/20 17:00 113 18 133/75 (94) 90 Nasal Cannula 4.00 11/16/20 16:23 95 Nasal Cannula 4.00 11/16/20 16:00 93 28 125/74 (91) 94 Nasal Cannula 4.00 11/16/20 15:25 37.3 11/16/20 15:00 94 15 116/61 (79) 90 Nasal Cannula 4.00 11/16/20 14:00 101 18 114/70 (85) 91 Nasal Cannula 4.00 11/16/20 13:00 92 37 136/81 (99) 95 Nasal Cannula 4.00 11/16/20 13:00 92 11/16/20 12:00 93 13 127/77 (91) 90 Nasal Cannula 4.00 11/16/20 12:00 90 Nasal Cannula 6.00 11/16/20 11:00 96 34 115/62 (79) 91 Nasal Cannula 4.00 I & O 11/17/20 07:00 Intake Total 3320 ml Output Total 1795 ml Balance 1525 ml Height & Weight Height: '" Weight: lbs. oz. kg; 24.00 BMI Method: General Appearance: Other (per RN) Respiratory: Lungs Clear, No Accessory Muscle Use, Decreased Breath Sounds, Respiratory Distress (mod) Capillary Refill: Greater Than 3 Seconds Peripheral Pulses: 1+ Left Dors-Pedis (L), 1+ Radial Pulses (R) Gastrointestinal: normal bowel sounds, non tender, soft, no pulsatile mass Results Lab Laboratory Tests 11/15/20 14:38 11/16/20 03:05 11/17/20 03:59 Assessment/Plan Assessment/Plan See free text Critical Care: Critically Ill Patient Time spent on discussion(mins): 0 JACINTO ALVAREZ MD Nov 17, 2020 10:57
[2020-11-17] MEDS: NOREPINEPHRINE 8 MG/250 ML 250 ML IV SCH (13:33)
--- NOTE | 2020-11-17 15:48 | Progress Note - Hospitalist ---
Subjective HPI/CC On Admission Date Seen by Provider: Nov 17, 2020 Time Seen by Provider: 10:15 Subjective/Events-last exam Patient reports nonproductive cough is about the same she reports fatigue and some stable numbness in her hands and feet. Oxygenation requirements have increased as she is now on Vapotherm desaturates with activity maintaining saturations predominantly above 92% on Vapotherm. She denies chest pain and has been afebrile. Focused Exam Lactate Level 11/15/20 14:38: Lactic Acid Level 0.93 11/15/20 19:25: Lactic Acid Level 0.86 Time of Focused Exam: 17:04 Objective Exam Vital Signs Vital Signs Date Time Temp Pulse Resp B/P (MAP) Pulse Ox O2 Delivery O2 Flow Rate FiO2 11/17/20 15:00 89 32 114/54 (74) 95 High Flow N/C 12.00 11/17/20 11:57 37.2 11/17/20 06:59 93 Capillary Refill : Greater Than 3 Seconds General Appearance: No Apparent Distress Respiratory: No Accessory Muscle Use, No Respiratory Distress, Other (Fine fibrotic sounding rales to the mid lung [place] not as prominent anteriorly no wheezing noted. Transfer text) Cardiovascular: Regular Rate, Rhythm, No Edema, No Gallop, No JVD, No Murmur, Normal Peripheral Pulses Gastrointestinal: Normal Bowel Sounds, No Organomegaly, No Pulsatile Mass, Non Tender, Soft Results/Procedures Lab Laboratory Tests 11/17/20 03:59 Patient resulted labs reviewed. Assessment/Plan Assessment and Plan Assess & Plan/Chief Complaint 1. Acute hypoxic respiratory failure due Possibly due to infectious etiology c onsidering autoimmune history need to consider autoimmune related lung disease like pulmonary fibrosis. Currently all [facility] are on diversion. Her outpatient surgery rn in [facility] not available till Thursday recommend discussing the case with him. In the meantime continue broad-spectrum antibiotics and high flow oxygen. 2. Anemia in the low 7 range close to her baseline at 8 slightly bloody stools without pain improved off Lovenox continue to monitor. Reported history of h emolytic anemia considering low normal bilirubin level this does not appear to be active. 3. Recent history of shingles 4. History of still's disease Critical Care Critically Ill Patient GEGE LEE MD Nov 17, 2020 15:48
[2020-11-17] MEDS: ACETAMINOPHEN 325 MG TABLET PO PRN (20:25)
[2020-11-18] MEDS: LACTATED RINGERS 1,000 ML IV SCH ×3 (04:09→18:16)
[2020-11-18] MEDS: CEFEPIME 1,000 MG/SWFI 10 ML IV PUSH IV SCH ×8 (04:09→21:35)
[2020-11-18 04:20] LABS: BASOPHILS % (AUTO) 0 % (0-10); EOSINOPHILS # (AUTO) 0.9 10^3/uL (0.0-0.3); EOSINOPHILS % (AUTO) 11 % (0-10); HEMATOCRIT 25 % (35-52); LYMPHOCYTES # (AUTO) 0.6 10^3/uL (1.0-4.0); LYMPHOCYTES % (AUTO) 7 % (12-44); MEAN CORPUSCULAR HEMOGLOBIN 25 pg (25-34); MEAN CORPUSCULAR HGB CONC 28 g/dL (32-36); MEAN CORPUSCULAR VOLUME 89 fL (80-99); MEAN PLATELET VOLUME 8.4 fL (9.0-12.2); MONOCYTES # (AUTO) 0.2 10^3/uL (0.0-1.0); MONOCYTES % (AUTO) 2 % (0-12); NEUTROPHILS # (AUTO) 6.7 10^3/uL (1.8-7.8); NEUTROPHILS % (AUTO) 79 % (42-75); PLATELET COUNT 270 10^3/uL (130-400); WHITE BLOOD COUNT 8.5 10^3/uL (4.3-11.0)
[2020-11-18 04:26] LABS: HEMOGLOBIN 6.8 g/dL (11.5-16.0)
[2020-11-18] MEDS: ACETAMINOPHEN 325 MG TABLET PO PRN ×2 (04:26→18:20)
[2020-11-18 04:38] LABS: ALBUMIN 2.1 GM/DL (3.2-4.5); POTASSIUM 3.4 MMOL/L (3.6-5.0)
[2020-11-18 04:39] LABS: CALCIUM 8.8 MG/DL (8.5-10.1)
[2020-11-18 04:40] LABS: TOTAL PROTEIN 5.3 GM/DL (6.4-8.2)
[2020-11-18 04:42] LABS: BILIRUBIN,TOTAL 0.4 MG/DL (0.1-1.0)
[2020-11-18 04:44] LABS: CREATININE SERUM 0.55 MG/DL (0.60-1.30)
[2020-11-18] MEDS ORDERED: NS IV 500 ML 500 ML IV SCH ×2 (04:45→07:30)
[2020-11-18 04:47] LABS: MAGNESIUM 1.5 MG/DL (1.6-2.4)
[2020-11-18] MEDS: MAGNESIUM 1 GM/100 ML IVPB 100 ML IV SCH ×3 (05:47→09:11)
[2020-11-18] MEDS: POTASSIUM CL 10MEQ/50ML IVPB 50 ML IV SCH ×3 (05:47→08:04)
[2020-11-18] MEDS: KCL 20 MEQ TAB (K-DUR) PO SCH (05:47)
[2020-11-18] MEDS: VASOPRESSIN INJECTION 20 UNIT in NS (IVPB) 100 ML IV SCH ×3 (05:48→21:35)
[2020-11-18] MEDS: LEVOTHYROXINE 100 MCG (LEVOTHROID) TAB PO SCH (06:07)
[2020-11-18] MEDS: VANCOMYCIN 1 GM/NS 250 ML IVPB IV SCH ×2 (06:07)
[2020-11-18] MEDS: NOREPINEPHRINE 8 MG/250 ML 250 ML IV SCH (10:01)
[2020-11-18] MEDS: RT-ALBUTEROL SULF 2.5 MG/3 ML PRE-MIX VIAL INH SCH ×2 (10:22→21:28)
--- NOTE | 2020-11-18 10:26 | Tele-ICU Progress Note ---
Subjective Date Seen by a Provider: Nov 18, 2020 Time Seen by a Provider: 08:45 Subjective/Events-last exam This virtual visit was conducted using real time audio/video. Thank you for asking us to see this patient for respiratory insufficiency and distress due to pna/sepsis.. HPC: Recent events: Off pressors. O2 down to 10 LPM. Pt has autoantibodies, records being obtained from OSH. PE: Resting comfortably. VSS O2 sat 97% on 10 LPM NC. HEENT: No obvious masses, adenopathy or JVD. Chest: clear to auscultation. CV: RRR S1 S2 No murmur or added sounds. Abd: Non-tender. Bowel sounds Y. : Unremarkable. Bobby Y. BACK SEAM STITCHER/psychiatric: Alert and oriented, grossly intact. No obvious focal findings. Extremities: No edema. Capillary refill < 3 seconds. Skin: unremarkable. Results: Decreased Hb 6.8 : to receive 2 Units PRBCs Na 131 K 3.4. A/P: Respiratory insufficiency/distress: wean O2 as pedro. Available chart/ vitals / labs /images reviewed. Video assessment done using teleICU camera, rest of exam as per RN. Monitor for increasing oxygenation needs. Cont abx., albut.. Lovenox held. Recd. KCl. Critical Care: critically ill patient. Doing better. Possible transfer to floor if O2 needs decrease further. Discussed with JEFF Sams. Asked RN to reach out to eICU if any questions or concerns later. Time spent with patient/coordination of care with other health professionals (mins):20 Sepsis Event Evaluation Height, Weight, BMI Height: '" Weight: lbs. oz. kg; 24.00 BMI Method: Focused Exam Lactate Level 11/15/20 14:38: Lactic Acid Level 0.93 11/15/20 19:25: Lactic Acid Level 0.86 Time of Focused Exam: 17:04 Exam Exam Patient acknowledged, consented, and participated in this virtual visit which was conducted using real time audio/video Vital Signs Date Time Temp Pulse Resp B/P (MAP) Pulse Ox O2 Delivery O2 Flow Rate FiO2 11/18/20 10:00 79 33 95/52 (66) 99 High Flow N/C 10.00 11/18/20 09:58 High Flow N/C 10.00 11/18/20 09:00 85 36 100/56 (71) 97 High Flow N/C 12.00 11/18/20 08:18 97 High Flow N/C 12.00 11/18/20 08:00 67 25 105/61 (82) 100 High Flow N/C 12.00 11/18/20 07:55 36.7 11/18/20 07:00 70 11/18/20 07:00 81 110/67 (84) 94 High Flow N/C 12.00 11/18/20 06:00 711 25 105/64 (78) 100 High Flow N/C 12.00 11/18/20 05:00 81 23 99/54 (69) 100 High Flow N/C 12.00 11/18/20 05:00 36.4 11/18/20 04:26 37.4 11/18/20 04:00 95 High Flow N/C 12.00 11/18/20 04:00 92 28 93/50 (64) 96 High Flow N/C 12.00 11/18/20 03:00 80 27 111/65 (80) 100 High Flow N/C 12.00 11/18/20 02:00 79 25 117/65 (82) 100 High Flow N/C 12.00 11/18/20 01:00 93 26 127/68 (87) 100 High Flow N/C 12.00 11/18/20 01:00 84 11/18/20 00:00 95 High Flow N/C 12.00 11/18/20 00:00 89 30 94 High Flow N/C 12.00 11/17/20 23:00 85 22 107/62 (77) 96 High Flow N/C 12.00 11/17/20 21:00 112 11 120/62 (81) 96 High Flow N/C 12.00 11/17/20 20:55 37.4 11/17/20 20:33 Nasal Cannula 12.00 93 11/17/20 20:25 38.6 11/17/20 20:19 38.6 11/17/20 20:00 108 36 141/78 (99) 95 High Flow N/C 12.00 11/17/20 20:00 95 High Flow N/C 12.00 11/17/20 19:00 110 11/17/20 19:00 107 24 135/76 (95) 95 High Flow N/C 12.00 11/17/20 18:00 101 26 125/62 (83) 99 High Flow N/C 12.00 11/17/20 17:00 95 31 132/70 (90) 95 High Flow N/C 12.00 11/17/20 16:12 95 High Flow N/C 12.00 11/17/20 16:12 37.0 11/17/20 16:00 89 32 114/54 (74) 95 High Flow N/C 12.00 11/17/20 15:00 89 32 114/54 (74) 95 High Flow N/C 12.00 11/17/20 14:00 86 35 121/70 (87) 97 High Flow N/C 12.00 11/17/20 13:00 91 11/17/20 13:00 93 110/91 (98) 96 High Flow N/C 12.00 11/17/20 12:00 96 19 122/73 (89) 94 High Flow N/C 12.00 11/17/20 11:57 37.2 11/17/20 11:36 High Flow N/C 12.00 11/17/20 11:27 98 High Flow N/C 12.00 11/17/20 11:00 93 129/71 (90) 97 High Flow N/C 15.00 I & O 11/18/20 06:59 Intake Total 2370 ml Output Total 3400 ml Balance -1030 ml Height & Weight Height: '" Weight: lbs. oz. kg; 24.00 BMI Method: General Appearance: No Apparent Distress Respiratory: No Accessory Muscle Use, No Respiratory Distress, Other (Fine fibrotic sounding rales to the mid lung winslow not as prominent anteriorly no wheezing noted. Transfer text) Cardiovascular: Regular Rate, Rhythm, No Edema, No Gallop, No JVD, No Murmur, Normal Peripheral Pulses Capillary Refill: Greater Than 3 Seconds Peripheral Pulses: 1+ Left Dors-Pedis (L), 1+ Radial Pulses (R) Gastrointestinal: normal bowel sounds, non tender, soft, no pulsatile mass Results Lab Laboratory Tests 11/17/20 03:59 11/18/20 03:45 Assessment/Plan Assessment/Plan See free text. Critical Care: Critically Ill Patient Time spent on discussion(mins): 0 JACINTO ALVAREZ MD Nov 18, 2020 10:26
--- NOTE | 2020-11-18 13:26 | Progress Note - Hospitalist ---
Subjective HPI/CC On Admission Date Seen by Provider: Nov 18, 2020 Time Seen by Provider: 13:19 Subjective/Events-last exam Son was present to aid in translation today. Patient denies shortness of breath at rest she has some chest pain with cough only denies pain with deep inspiration. Cough remains dry and nonproductive. She has some numbness in the tips of her fingers and the bottoms of her feet with some intermittent burning this is been going on for the last 1 to 2 months with slow decline in respira tory status with dry cough. She denied night sweats chills or fever. Focused Exam Lactate Level 11/15/20 14:38: Lactic Acid Level 0.93 11/15/20 19:25: Lactic Acid Level 0.86 Time of Focused Exam: 17:04 Objective Exam Vital Signs Vital Signs Date Time Temp Pulse Resp B/P (MAP) Pulse Ox O2 Delivery O2 Flow Rate FiO2 11/18/20 13:00 86 11/18/20 12:08 95 High Flow N/C 6.00 11/18/20 12:00 103/60 (74) 11/18/20 11:54 36.5 11/18/20 11:00 27 11/17/20 20:33 93 Capillary Refill : Greater Than 3 Seconds General Appearance: No Apparent Distress Respiratory: No Accessory Muscle Use, No Respiratory Distress (At rest), Other (Unchanged from yesterday very dry sounding rales in the mid lung winslow and to a lesser extent anteriorly with no wheezes or rhonchi.) Cardiovascular: Regular Rate, Rhythm, No Edema, No Gallop, No JVD, No Murmur Gastrointestinal: Normal Bowel Sounds, No Organomegaly, No Pulsatile Mass, Non Tender, Soft Extremity: No Pedal Edema, Other (Warm distal pulses intact.) Results/Procedures Lab Laboratory Tests 11/18/20 03:45 Patient resulted labs reviewed. Assessment/Plan Assessment and Plan Assess & Plan/Chief Complaint 1. Acute hypoxic respiratory failure due Possibly due to infectious etiology considering autoimmune history need to consider autoimmune related lung disease like pulmonary fibrosis. [facility]. Nursing staff tells me that the patient appears to be next on the list we will transfer pending bed availability. 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 The patient's oxygen requirements have lessened a bit so far today and and she has been maintaining saturations around 90% on 6 L per nasal cannula. 2. Anemia With a greater contributor likely being chronic disease with a smaller component of blood loss from the GI tract is a little worse today at 6.7. The patient is hemodynamically stable. 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 She has been typed and crossed and was negative for auto antibodies here but are sending the units to the [place] to check and ensure that we are giving deluna agglutinin negative blood when available. He states that she had received blood without difficulty in the past at [place]. I did discuss with the family that while that would be ideal for her it was going to be first bed availability which may be a different tertiary care center. 3. Recent history of shingles 4. History of still's disease Critical Care Critically Ill Patient GEGE LEE MD Nov 18, 2020 13:26
[2020-11-19] MEDS: LACTATED RINGERS 1,000 ML IV SCH ×2 (02:17→08:37)
[2020-11-19] MEDS: CEFEPIME 1,000 MG/SWFI 10 ML IV PUSH IV SCH ×8 (02:22→22:40)
[2020-11-19 02:41] LABS: BASOPHILS % (AUTO) 0 % (0-10); EOSINOPHILS % (AUTO) 17 % (0-10); HEMATOCRIT 27 % (35-52); HEMOGLOBIN 7.6 g/dL (11.5-16.0); LYMPHOCYTES # (AUTO) 0.6 10^3/uL (1.0-4.0); LYMPHOCYTES % (AUTO) 10 % (12-44); MEAN CORPUSCULAR HEMOGLOBIN 25 pg (25-34); MEAN CORPUSCULAR HGB CONC 28 g/dL (32-36); MEAN CORPUSCULAR VOLUME 89 fL (80-99); MEAN PLATELET VOLUME 8.1 fL (9.0-12.2); MONOCYTES # (AUTO) 0.2 10^3/uL (0.0-1.0); MONOCYTES % (AUTO) 4 % (0-12); NEUTROPHILS # (AUTO) 3.9 10^3/uL (1.8-7.8); NEUTROPHILS % (AUTO) 68 % (42-75); PLATELET COUNT 292 10^3/uL (130-400); WHITE BLOOD COUNT 5.7 10^3/uL (4.3-11.0)
[2020-11-19 02:53] LABS: ALBUMIN 2.3 GM/DL (3.2-4.5); POTASSIUM 3.6 MMOL/L (3.6-5.0)
[2020-11-19 02:54] LABS: CALCIUM 9.4 MG/DL (8.5-10.1)
[2020-11-19 02:56] LABS: TOTAL PROTEIN 5.8 GM/DL (6.4-8.2)
[2020-11-19 02:57] LABS: BILIRUBIN,TOTAL 0.3 MG/DL (0.1-1.0)
[2020-11-19 02:59] LABS: CREATININE SERUM 0.59 MG/DL (0.60-1.30)
[2020-11-19 03:02] LABS: MAGNESIUM 1.8 MG/DL (1.6-2.4)
[2020-11-19 03:31] VITALS: BP 117/71
[2020-11-19] MEDS: MAGNESIUM 1 GM/100 ML IVPB 100 ML IV SCH (05:11)
[2020-11-19] MEDS: KCL 20 MEQ TAB (K-DUR) PO SCH (05:11)
[2020-11-19] MEDS: POTASSIUM CL 10MEQ/50ML IVPB 50 ML IV SCH ×3 (05:12→05:35)
[2020-11-19] MEDS: VASOPRESSIN INJECTION 20 UNIT in NS (IVPB) 100 ML IV SCH ×3 (05:12→22:50)
[2020-11-19] MEDS: NOREPINEPHRINE 8 MG/250 ML 250 ML IV SCH (05:30)
[2020-11-19] MEDS: LEVOTHYROXINE 100 MCG (LEVOTHROID) TAB PO SCH (05:34)
--- NOTE | 2020-11-19 11:38 | Progress Note - Hospitalist ---
KERRI HAWK MED STUDENT 11/19/20 1138: Subjective HPI/CC On Admission Date Seen by Provider: Nov 19, 2020 Time Seen by Provider: 07:45 acute pneumonia Subjective/Events-last exam This is Kaylynn a 55 yo female on day 5 of her hospital stay with the chief complaint of acute pneumonia. Upon entering the room she was laying in bed awake. Pt was calm, cooperative,and engaged during questioning. She stated that she has moderate right shoulder pain as well as discomfort at the tips of her fingers on both hands. She has little appetite and describes not eating well. Pt had a chest x-ray completed on 11/16 that showed pulmonary edema or multifocal pneumonia. She had her blood typed yesterday due to a hemoglobin of 6.8 but did not receive the transfusion and hemoglobin improved to 7.6 today. Pt is stabil ized and currently staff is looking to transfer her for specialized care due to Still's Disease. This is an autoimmune disorder that can affect the lungs as well as the joints and is causing pulmonary fibrosis in this pt. She also has a history of hemolytic anemia and has needed transfusions over the last couple months at [facility]. Review of Systems General: Appetite Pulmonary: Dyspnea, Cough Musculoskeletal: shoulder pain, hand pain Focused Exam Time of Focused Exam: 17:04 Respiratory: Chest Non Tender, No Accessory Muscle Use, Crackles, Decreased Breath Sounds, Respiratory Distress (requiriing high flow supplemental 02) Cardiovascular: Regular Rate, Rhythm, No Gallop, No Murmur, Normal Peripheral Pulses Skin: normal color, warm/dry Objective Exam Vital Signs Vital Signs Date Time Temp Pulse Resp B/P (MAP) Pulse Ox O2 Delivery O2 Flow Rate FiO2 11/19/20 14:10 High Flow N/C 15.00 11/19/20 12:26 101 11/19/20 12:00 36.9 11/19/20 12:00 35 126/69 (88) 89 11/17/20 20:33 93 Capillary Refill : Greater Than 3 Seconds General Appearance: Chronically ill, Mild Distress HEENT: PERRL/EOMI, Pharynx Normal Neck: Normal Inspection, Non Tender, Supple Respiratory: Chest Non Tender, No Accessory Muscle Use, Crackles, Decreased Breath Sounds, Respiratory Distress Cardiovascular: Regular Rate, Rhythm, No Gallop, No Murmur, Normal Peripheral Pulses Gastrointestinal: Normal Bowel Sounds, Non Tender, Soft Rectal: Deferred Extremity: Normal Inspection, Non Tender, No Calf Tenderness, Pedal Edema Neurologic/Psychiatric: Alert, Oriented x3, No Motor/Sensory Deficits, Normal Mood/Affect Skin: Normal Color, Warm/Dry Results/Procedures Lab Laboratory Tests 11/19/20 02:20 Patient resulted labs reviewed. Assessment/Plan Assessment and Plan Assess & Plan/Chief Complaint acute pneumonia continue antibiotic treatment- cefepime continue supplemental O2- currently on high flow of 10L right shoulder pain Stills Disease Pain/discomfort at the tips of the fingers bilaterally continue tylenol PRN DVT prophylaxis lovenox inquire about transfer hemolytic anemia Hgb of 7,6 today blood pressure management norepi and vasopressin continue home medications encourage IS use MILE MULLIGAN DO 11/20/20 0449: Subjective Subjective/Events-last exam Pt dong well On 10 liters of O2 high flow CXR shows pulmonary fibrosis Day #5 in the hospital Hgb 7.6 Family at the bedside agrees with the plan Trying to transport with [facility] but everyone is on diversion Review of Systems General: Fatigue Pulmonary: Dyspnea Objective Exam General Appearance: No Apparent Distress, WD/WN, Anxious, Chronically ill Respiratory: Crackles, Decreased Breath Sounds Cardiovascular: Regular Rate, Rhythm Neurologic/Psychiatric: Alert, Oriented x3 Assessment/Plan Assessment and Plan Assess & Plan/Chief Complaint Attempted transfer that likely will be unsuccessful Transfuse as necessary Oxygen supplementation try to wean Supportive care IV antibiotics Supervisory-Addendum Brief Verification & Attestation Participated in pt care: history, MDM, physical Personally performed: exam, history, MDM, supervision of care Care discussed with: Medical Student Procedures: n/a Results interpretation: Verified all documentation Verification and Attestation of Medical Student E/M Service A medical student performed and documented this service in my presence. I reviewed and verified all information documented by the medical student and made modifications to such information, when appropriate. I personally performed the physical exam and medical decision making. Mile Mulligan, Nov 20, 2020,04:47 KERRI HAWK MED STUDENT Nov 19, 2020 11:38 MILE MULLIGAN DO Nov 20, 2020 04:49
--- NOTE | 2020-11-19 13:23 | Tele-ICU Progress Note ---
Subjective Date Seen by a Provider: Nov 19, 2020 Time Seen by a Provider: 09:12 Sepsis Event Evaluation Height, Weight, BMI Height: '" Weight: lbs. oz. kg; 24.00 BMI Method: Focused Exam Time of Focused Exam: 17:04 Exam Exam Patient acknowledged, consented, and participated in this virtual visit which was conducted using real time audio/video Vital Signs Date Time Temp Pulse Resp B/P (MAP) Pulse Ox O2 Delivery O2 Flow Rate FiO2 11/19/20 12:08 High Flow N/C 8.00 11/19/20 12:00 95 35 126/69 (88) 89 High Flow N/C 8.00 11/19/20 11:02 High Flow N/C 8.00 11/19/20 11:00 93 43 124/68 (86) 91 High Flow N/C 10.00 11/19/20 10:00 93 38 135/76 (95) 95 High Flow N/C 10.00 11/19/20 09:00 93 38 127/74 (91) 91 High Flow N/C 10.00 11/19/20 08:39 High Flow N/C 10.00 11/19/20 08:11 88 High Flow N/C 10.00 11/19/20 08:01 36.7 11/19/20 08:00 90 39 115/66 (82) 89 High Flow N/C 7.00 11/19/20 07:00 82 25 122/64 (83) 95 High Flow N/C 7.00 11/19/20 06:32 79 11/19/20 06:00 77 26 122/72 (89) 96 High Flow N/C 7.00 11/19/20 05:00 81 23 125/72 (89) 97 High Flow N/C 7.00 11/19/20 04:00 90 High Flow N/C 7.00 11/19/20 04:00 68 24 130/68 (88) 99 High Flow N/C 7.00 11/19/20 03:31 78 97 11/19/20 03:00 85 24 121/67 (85) 94 High Flow N/C 7.00 11/19/20 02:00 94 24 94 High Flow N/C 7.00 11/19/20 01:00 78 11/19/20 01:00 78 23 109/63 (78) 99 High Flow N/C 7.00 11/19/20 00:00 80 24 103/54 (70) 97 High Flow N/C 7.00 11/19/20 00:00 90 High Flow N/C 7.00 11/19/20 00:00 37.1 11/18/20 23:00 78 24 105/52 (69) 97 High Flow N/C 7.00 11/18/20 22:00 84 23 115/63 (80) 95 High Flow N/C 7.00 11/18/20 21:30 High Flow N/C 7.00 11/18/20 21:29 99 High Flow N/C 15.00 11/18/20 21:00 90 112/70 (84) 99 High Flow N/C 15.00 11/18/20 20:00 90 High Flow N/C 7.00 11/18/20 20:00 100 111/61 (78) 100 High Flow N/C 15.00 11/18/20 19:35 37.4 11/18/20 19:00 105 138/76 (96) 98 High Flow N/C 15.00 11/18/20 19:00 108 11/18/20 18:32 High Flow N/C 15.00 11/18/20 18:20 37.6 11/18/20 18:00 107 144/78 (100) 94 High Flow N/C 8.00 11/18/20 17:00 93 132/84 (100) 97 High Flow N/C 8.00 11/18/20 16:43 37.0 11/18/20 16:04 High Flow N/C 8.00 11/18/20 16:03 90 High Flow N/C 8.00 11/18/20 16:00 95 26 131/79 (96) 93 High Flow N/C 6.00 11/18/20 15:00 96 26 143/80 (101) 98 High Flow N/C 6.00 11/18/20 14:00 101 93 High Flow N/C 6.00 I & O 11/19/20 07:00 Intake Total 4660 ml Output Total 4475 ml Balance 185 ml Height & Weight Height: '" Weight: lbs. oz. kg; 24.00 BMI Method: General Appearance: Chronically ill, Mild Distress HEENT: PERRL/EOMI, Pharynx Normal Neck: Normal Inspection, Non Tender, Supple Respiratory: Chest Non Tender, No Accessory Muscle Use, Crackles, Decreased Breath Sounds, Respiratory Distress Cardiovascular: Regular Rate, Rhythm, No Gallop, No Murmur, Normal Peripheral Pulses Capillary Refill: Greater Than 3 Seconds Peripheral Pulses: 1+ Left Dors-Pedis (L), 1+ Radial Pulses (R) Gastrointestinal: normal bowel sounds, non tender, soft, no pulsatile mass Extremity: Normal Inspection, Non Tender, No Calf Tenderness, Pedal Edema Neurologic/Psychiatric: Alert, Oriented x3, No Motor/Sensory Deficits, Normal Mood/Affect Skin: Normal Color, Warm/Dry Results Lab Laboratory Tests 11/18/20 03:45 11/19/20 02:20 Assessment/Plan Assessment/Plan (Tele-ICU Physician , Progress Note ) Available chart/ vitals / labs / Images reviewed Video assessment done using teleICU camera, rest of exam as per RN Discussed with RN Events overnight : on 7 l Afebrile ti first day I/O = even Drips: LR 150 Pressors: , hemodynamically stable EXAM PER RN Consultants: Hospital course: 11/16 admitted ith resp failure 11/18- Off pressors. O2 down to 10 LPM A/P Acute hypoxic respiratory failure - pneumonia vs ILD/autoimmune - 10 L O2 Multifocal pneumonia , mostly basilar - CAP ? (NEG Covid19 , sputum 11/15 usual rosalee Stills Disease - ? exacerbation /MAS - will check ferritin level - off steroids - ne peric efficion on ECHO hemolytic anemia h/o , with Hb drop on 11/18 -Hgb incr to 7.6 without transfusion - monitor ECHO - ef 60%, RVSP 40 Recent history of shingles Lines : periph (Central Line Necessity Reviewed) Bobby: OG: Nutrition: po Analgesia: Anxiety/ delirium VTE Prophylaxis: lovenoc on hold with low Hb Stress Ulcer Prophylaxis: po intake Glycemic Control: Plans in collaboration with bedside consultants and IM MDs. Discussed with RN to reach out if any questions or concerns A total of 25 minutes of critical care time was devoted to this patient today, required to treat and/or prevent further deterioration of critical care condition ( as above) . KEKE RIVERA MD Nov 19, 2020 13:23
[2020-11-20] MEDS: ACETAMINOPHEN 325 MG TABLET PO PRN (00:25)
[2020-11-20] MEDS: NOREPINEPHRINE 8 MG/250 ML 250 ML IV SCH (03:52)
[2020-11-20 03:54] LABS: BASOPHILS % (AUTO) 0 % (0-10); EOSINOPHILS # (AUTO) 0.8 10^3/uL (0.0-0.3); EOSINOPHILS % (AUTO) 12 % (0-10); HEMATOCRIT 25 % (35-52); LYMPHOCYTES # (AUTO) 0.6 10^3/uL (1.0-4.0); LYMPHOCYTES % (AUTO) 10 % (12-44); MEAN CORPUSCULAR HEMOGLOBIN 25 pg (25-34); MEAN CORPUSCULAR HGB CONC 28 g/dL (32-36); MEAN CORPUSCULAR VOLUME 88 fL (80-99); MEAN PLATELET VOLUME 8.6 fL (9.0-12.2); MONOCYTES # (AUTO) 0.2 10^3/uL (0.0-1.0); MONOCYTES % (AUTO) 3 % (0-12); NEUTROPHILS # (AUTO) 4.7 10^3/uL (1.8-7.8); NEUTROPHILS % (AUTO) 73 % (42-75); PLATELET COUNT 256 10^3/uL (130-400); WHITE BLOOD COUNT 6.5 10^3/uL (4.3-11.0)
[2020-11-20 04:07] LABS: POTASSIUM 3.6 MMOL/L (3.6-5.0)
[2020-11-20 04:08] LABS: CALCIUM 9.3 MG/DL (8.5-10.1)
[2020-11-20 04:09] LABS: TOTAL PROTEIN 5.3 GM/DL (6.4-8.2)
[2020-11-20 04:11] LABS: BILIRUBIN,TOTAL 0.3 MG/DL (0.1-1.0)
[2020-11-20 04:13] LABS: CREATININE SERUM 0.57 MG/DL (0.60-1.30)
[2020-11-20] MEDS: CEFEPIME 1,000 MG/SWFI 10 ML IV PUSH IV SCH ×8 (04:14→20:56)
[2020-11-20 04:16] LABS: MAGNESIUM 1.6 MG/DL (1.6-2.4)
[2020-11-20] MEDS: KCL 20 MEQ TAB (K-DUR) PO SCH (04:16)
[2020-11-20] MEDS: POTASSIUM CL 10MEQ/50ML IVPB 50 ML IV SCH (04:16)
[2020-11-20] MEDS: MAGNESIUM 1 GM/100 ML IVPB 100 ML IV SCH ×3 (04:22→06:10)
[2020-11-20] MEDS: LEVOTHYROXINE 100 MCG (LEVOTHROID) TAB PO SCH (04:29)
[2020-11-20] MEDS ORDERED: KCL 20 MEQ TAB (K-DUR) PO ONE (04:30)
[2020-11-20] MEDS: VASOPRESSIN INJECTION 20 UNIT in NS (IVPB) 100 ML IV SCH (07:10)
[2020-11-20] MEDS: LACTATED RINGERS 1,000 ML IV SCH (08:50)
--- NOTE | 2020-11-20 10:41 | Progress Note - Hospitalist ---
KERRI HAWK MED STUDENT 11/20/20 1041: Subjective HPI/CC On Admission Date Seen by Provider: Nov 20, 2020 Time Seen by Provider: 07:45 acute respiratory failure, hypoxia, PNA, sepsis Subjective/Events-last exam This is Kaylynn a 55 yo female on day 6 of her hospital stay with the chief complaint of acute respiratory failure, hypoxia, PNA, and sepsis. Upon entering the room she was sitting in bed eating breakfast. She was calm, cooperative, and engaged during questioning. Pt stated that she is experiencing SOB on exertion currently at 90% on high flow of 9L. She is still having moderate pain in her right shoulder. Pt had a cough throughout the interview worse when taking deep breaths. Her last BM was multiple days ago. Review of Systems Pulmonary: Dyspnea, Cough Musculoskeletal: shoulder pain (right ) Focused Exam Time of Focused Exam: 07:45 Respiratory: Chest Non Tender, Normal Breath Sounds, No Accessory Muscle Use, Crackles, Respiratory Distress Cardiovascular: Regular Rate, Rhythm, No Gallop, No Murmur, Normal Peripheral Pulses Skin: normal color, warm/dry Objective Exam Vital Signs Vital Signs Date Time Temp Pulse Resp B/P (MAP) Pulse Ox O2 Delivery O2 Flow Rate FiO2 11/20/20 08:53 95 High Flow N/C 9.00 11/20/20 08:50 36.8 11/20/20 06:00 71 28 113/52 (78) 11/17/20 20:33 93 Capillary Refill : Greater Than 3 Seconds General Appearance: WD/WN, Chronically ill, Mild Distress HEENT: PERRL/EOMI, Pharynx Normal Neck: Normal Inspection, Non Tender, Supple Respiratory: Chest Non Tender, Normal Breath Sounds, No Accessory Muscle Use, Crackles, Respiratory Distress Cardiovascular: Regular Rate, Rhythm, No Gallop, No Murmur, Normal Peripheral Pulses Gastrointestinal: Normal Bowel Sounds, Non Tender, Soft Rectal: Deferred Extremity: Normal Inspection, Non Tender, No Calf Tenderness, Pedal Edema Neurologic/Psychiatric: Alert, Oriented x3, Normal Mood/Affect Skin: Normal Color, Warm/Dry Results/Procedures Lab Laboratory Tests 11/20/20 03:05 Patient resulted labs reviewed. Assessment/Plan Assessment and Plan Assess & Plan/Chief Complaint acute pneumonia continue antibiotic treatment- cefepime acute respiratory failure continue supplemental O2- currently on high flow of 9L right shoulder pain Stills Disease Pain/discomfort at the tips of the fingers bilaterally continue tylenol PRN DVT prophylaxis lovenox transfer to cardiac step down hemolytic anemia Hgb of 7,0 today blood pressure management norepi and vasopressin per protocol continue home medications encourage IS use encourage ambulation and decrease in supplemental O2 constipation add fiber supplementation MILE MULLIGAN DO 11/21/20 0523: Subjective Subjective/Events-last exam Pt doing a lot better Transferring to fourth floor Day #6 of hospital Nine liters high flow currently No BM for six days so will initiate laxatives Hgb of 7.0 Overall doing really well, may not need to be transferred after all 3:30 this morning, [facility] contacted me about [facility] bed but that would be a lateral transfer and she needs auto-immune rheumatology and nephrology and pulmonology Review of Systems General: Fatigue, Malaise Pulmonary: Dyspnea, Cough Objective Exam General Appearance: No Apparent Distress, Anxious, Chronically ill Respiratory: Lungs Clear, Crackles, Decreased Breath Sounds Assessment/Plan Assessment and Plan Assess & Plan/Chief Complaint Transfer to floor Supportive care Monitor labs Check chest x-ray in the morning Supervisory-Addendum Brief Verification & Attestation Participated in pt care: history, MDM, physical Personally performed: exam, history, MDM, supervision of care Care discussed with: Medical Student Procedures: n/a Results interpretation: Verified all documentation Verification and Attestation of Medical Student E/M Service A medical student performed and documented this service in my presence. I reviewed and verified all information documented by the medical student and made modifications to such information, when appropriate. I personally performed the physical exam and medical decision making. Mile Mulligan, Nov 21, 2020,05:20 KERRI HAWK MED STUDENT Nov 20, 2020 10:41 MILE MULLIGAN DO Nov 21, 2020 05:23
--- NOTE | 2020-11-20 11:43 | Physical Therapy Evaluation ---
PT Evaluation-General Medical Diagnosis Admission Date Nov 15, 2020 at 16:00 Medical Diagnosis: actue resp. failure/hypoxemia/sepsis/pneumonia Onset Date: Nov 15, 2020 Therapy Diagnosis Therapy Diagnosis: generalized weakness/debility Precautions Precautions/Isolations: Fall Prevention, Standard Precautions Referral Physician: Codi Reason for Referral: Evaluation/Treatment Medical History Additional Medical History shingles/hemolytic anemia Current History EMS from [facility] with SOA and SAO2 71% Reviewed History: Yes Social History Home: Single Level Current Living Status: Other Family Prior Prior Level of Function SCALE: Activities may be completed with or without assistive devices. 4-Fqxopnfkkd-iikhscb completes the activity by him/herself with no assistance from a helper. 5-Set-up or Clean-up Assistance-helper sets up or cleans up; patient completes activity. [place] assists only prior to or following the activity. 4-Supervision or Touching Assistance-helper provides verbal cues and/or touching/steadying and/or contact guard assistance as patient completes activity. Assistance may be provided throughout the activity or intermittently. 3-Partial/Moderate Assistance-helper does LESS THAN HALF the effort. [place] lifts, holds or supports trunk or limbs, but provides less than half the effort. 2-Substantial/Maximal Assistance-helper does MORE THAN HALF the effort. [place] l ifts or holds trunk or limbs and provides more than half the effort. 8-Hdfywkkyc-gmwogi does ALL the effort. Patient does none of the effort to complete the activity. Or, the assistance of 2 or more helpers is required for the patient to complete the activity. If activity was not attempted, code reason: 7-Patient Refused. 9-Not Applicable-not attempted and the patient did not perform the activity before the current illness, exacerbation or injury. 10-Not Attempted due to Environmental Limitations-(lack of equipment, weather restraints, etc.). 88-Not Attempted due to Medical Conditions or Safety Concerns. Bed Mobility: 6 Transfers (B,C,W/C): 6 Gait: 6 Stairs: 6 Indoor Mobility (Ambulation): Independent Stairs: Independent Prior Devices Use: None PT Evaluation-Current Subjective Patient agrees to PT. Son present. Objective Patient Orientation: Normal For Age Attachments: Oxygen, Bobby Catheter, IV ROM/Strength ROM Lower Extremities bilateral LE WFL Strength Lower Extremities 3+/5 grossly bilateral LE Integumentary/Posture Bladder Incontinence: Bobby Cath Posture WFL Neuromuscular (Tone, Coordination, Reflexes) grossly intact Sensory Vision: Functional Hearing: Functional Transfers Roll Left to Right (QC): 3 Lying to Sitting/Side of Bed(Q: 3 Sit to Stand (QC): 3 Chair/Smd-vt-Aiuld Xfer(QC): 3 Gait Does the Patient Walk?: Yes Mode of Locomotion: Walk Anticipated Mode of Locomotion: Walk Walk 10 feet (QC): 3 Walk 50 ft with 2 Turns(QC): 88 Walk 150 ft (QC): 88 Distance: 15' Gait Assistive Device: FWW Comments/Gait Description slow, steady gait sequence Balance Sitting Static: Normal Sitting Dynamic: Normal Standing Static: Fair Standing Dynamic: Fair Assessment/Needs SAO2 decreases to 83% on 6L HF NC with quick recovery. Patient does display weakness/debility Rehab Potential: Fair PT Yarn Salvager Goals Yarn Salvager Goals PT Yarn Salvager Goals Time Frame: Dec 01, 2020 Roll Left & Right (QC): 6 Sit to Lying (QC): 6 Lying-Sitting on Side/Bed(QC): 6 Sit to Stand (QC): 6 Chair/Mnd-kp-Xmyal Xfer(QC): 6 Toilet Transfer (QC): 6 Does the Patient Walk: Yes Walk 10 feet (QC): 6 Walk 50ft with 2 Turns (QC): 6 Walk 150 ft (QC): 6 PT Plan Problem List Problem List: Activity Tolerance, Functional Strength, Safety, Balance, Gait, T cristian, Bed Mobility Treatment/Plan Treatment Plan: Continue Plan of Care Treatment Plan: Bed Mobility, Education, Functional Activity [place], Functional Strength, Gait, Safety, Therapeutic Exercise, Transfers Treatment Duration: Dec 01, 2020 Frequency: 6 times per week Estimated Hrs Per Day: .25 hour per day Patient and/or Family Agrees t: Yes Time/GCodes Time In: 1105 Time Out: 1127 Total Billed Treatment Time: 22 Total Billed Treatment 1 visit EVModC 22 min PROMISE SHEPARD PT Nov 20, 2020 11:43
--- NOTE | 2020-11-20 14:49 | Occupational Therapy Eval ---
OT Evaluation-General/PLF Medical Diagnosis Admission Date Nov 15, 2020 at 16:00 Medical Diagnosis: actue resp. failure/hypoxemia/sepsis/pneumonia Onset Date: Nov 15, 2020 Therapy Diagnosis Therapy Diagnosis: decreased ADL status Precautions Precautions/Isolations: Fall Prevention, Standard Precautions Referral Physician: Codi Referral Reason: Evaluation/Treatment Medical History Additional Medical History shingles, hemolytic anemia, hypothyroidism Current History ED due to SOB and weakness Social History Home: Single Level Current Living Status: Other Family ADL-Prior Level of Function SCALE: Activities may be completed with or without assistive devices. 3-Drdfbllgel-vbwgxiu completes the activity by him/herself with no assistance from a helper. 5-Set-up or Clean-up Assistance-helper sets up or cleans up; patient completes activity. [place] assists only prior to or following the activity. 4-Supervision or Touching Assistance-helper provides verbal cues and/or touching/steadying and/or contact guard assistance as patient completes activity. Assistance may be provided throughout the activity or intermittently. 3-Partial/Moderate Assistance-helper does LESS THAN HALF the effort. [place] lifts, holds or supports trunk or limbs, but provides less than half the effort. 2-Substantial/Maximal Assistance-helper does MORE THAN HALF the effort. [place] lifts or holds trunk or limbs and provides more than half the effort. 3-Txrtwfyfu-uykohj does ALL the effort. Patient does none of the effort to complete the activity. Or, the assistance of 2 or more helpers is required for the patient to complete the activity. If activity was not attempted, code reason: 7-Patient Refused. 9-Not Applicable-not attempted and the patient did not perform the activity before the current illness, exacerbation or injury. 10-Not Attempted due to Environmental Limitations-(lack of equipment, weather restraints, etc.). 88-Not Attempted due to Medical Conditions or Safety Concerns. ADL PLOF Comments Limited PLOF due to language barrier. Pt indicates IND with ADLs and functional mobility, no AD/AE Self Care: Independent Functional Cognition: Independent OT Current Status Subjective Pt seated upright in chair, agreeable to OT. OT and pt communicated through limited Vietnamese and Google translate. Mental Status/Objective Patient Orientation: Person, Place, Situation Attachments: Bobby Catheter, Oxygen Current Glasses/Contacts: Yes Upper Extremity ROM Decrease R shoulder ROM, overall WFL Upper Extremity Sensation WFL Upper Extremity Strength grossly 3+/5 ADL-Treatment Eating (QC): 6 (Per clincial judgment) Toileting Hygiene (QC): 4 (CGA, pt able to manage clothing and hygiene) Other Treatments Pt seated in recliner, used FWW to perform functional mobility into bathroom and onto toilet, she completed toileting, then stood at sink to wash hands, CGA. Pt transferred to bed, then supine. Post tx, pt laying in bed, call light in reach and all needs met. Education OT Patient Education: Correct positioning, Energy conservation, Exercise program, Modified ADL techniques, Progress toward Goal/Update tx plan, Purpose of tx/functional activities, Rehab process, Safety issues Teaching Recipient: Patient Teaching Methods: Discussion Response to Teaching: Verbalize Understanding OT Train Crew Member Goals Mcc Goals Time Frame: Nov 30, 2020 Eating (QC): 6 Oral Hygiene (QC): 6 Toileting Hygiene (QC): 6 Shower/Bathe Self (QC): 6 Upper Body Dressing (QC): 6 Lower Body Dressing (QC): 6 On/Off Footwear (QC): 6 Additional Goals: 1-Demonstrate ADL Tasks, 2-Verbalize Understanding, 3-Im proveStrength/[place] 1=Demonstrate adherence to instructed precautions during ADL tasks. 2=Patient will verbalize/demonstrate understanding of assistive devices/modifications for ADL. 3=Patient will improve strength/tolerance for activity to enable patient to perform ADL's. OT Education/Plan Problem List/Assessment Assessment: Decreased Activ Tolerance, Decreased UE Strength, Impaired Funct Balance, Impaired I ADL's, Impaired Self-Care Skills Discharge Recommendations Plan/Recommendations: Continue POC Treatment Plan/Plan of Care Patient would benefit from OT for education, treatment and training to promote independence in ADL's, mobility, safety and/or upper extremity function for ADL's. Plan of Care: ADL Retraining, Functional Mobility, UE Funct Exercise/Act Treatment Duration: Nov 30, 2020 Frequency: 5 times per week Estimated Hrs Per Day: .25 hour per day Rehab Potential: Fair Time/GCodes Start Time: 14:10 Stop Time: 14:27 Total Time Billed (hr/min): 17 Billed Treatment Time 1, DIDIER PORTILLO OT Nov 20, 2020 14:49
[2020-11-20 16:01] VITALS: BP 111/66
[2020-11-20 20:07] VITALS: BP 114/69
[2020-11-21 00:18] VITALS: BP 109/66
[2020-11-21] MEDS: CEFEPIME 1,000 MG/SWFI 10 ML IV PUSH IV SCH ×8 (04:13→21:53)
[2020-11-21 04:41] VITALS: BP 108/66
[2020-11-21 05:57] LABS: BASOPHILS % (AUTO) 0 % (0-10); EOSINOPHILS # (AUTO) 0.8 10^3/uL (0.0-0.3); EOSINOPHILS % (AUTO) 10 % (0-10); HEMATOCRIT 25 % (35-52); LYMPHOCYTES # (AUTO) 0.8 10^3/uL (1.0-4.0); LYMPHOCYTES % (AUTO) 10 % (12-44); MEAN CORPUSCULAR HEMOGLOBIN 25 pg (25-34); MEAN CORPUSCULAR HGB CONC 28 g/dL (32-36); MEAN CORPUSCULAR VOLUME 87 fL (80-99); MEAN PLATELET VOLUME 8.4 fL (9.0-12.2); MONOCYTES # (AUTO) 0.3 10^3/uL (0.0-1.0); MONOCYTES % (AUTO) 4 % (0-12); NEUTROPHILS # (AUTO) 5.9 10^3/uL (1.8-7.8); NEUTROPHILS % (AUTO) 75 % (42-75); PLATELET COUNT 245 10^3/uL (130-400); WHITE BLOOD COUNT 7.9 10^3/uL (4.3-11.0)
[2020-11-21 06:00] LABS: HEMOGLOBIN 6.9 g/dL (11.5-16.0)
[2020-11-21 06:10] LABS: ALBUMIN 2.2 GM/DL (3.2-4.5); POTASSIUM 4.3 MMOL/L (3.6-5.0)
[2020-11-21 06:11] LABS: CALCIUM 9.5 MG/DL (8.5-10.1)
[2020-11-21 06:12] LABS: TOTAL PROTEIN 5.7 GM/DL (6.4-8.2)
[2020-11-21 06:14] LABS: BILIRUBIN,TOTAL 0.3 MG/DL (0.1-1.0)
[2020-11-21 06:16] LABS: CREATININE SERUM 0.59 MG/DL (0.60-1.30)
[2020-11-21] MEDS: LEVOTHYROXINE 100 MCG (LEVOTHROID) TAB PO SCH (06:18)
--- NOTE | 2020-11-21 06:42 | Diagnostic Imaging Report ---
Indication: Pneumonia Portable chest shows normal heart size and vascularity. There are bilateral infiltrates which are slightly worse compared to the 11/16/20 study. There is no effusion or pneumothorax. IMPRESSION: Increasing infiltrates. Dictated by: Dictated on workstation # [id number]
[2020-11-21 08:00] VITALS: BP 111/79
--- NOTE | 2020-11-21 09:19 | Physical Therapy Progress Note ---
Therapy Progress Note PT checked on pt at 8:30, pt stated they would like PT to come back right before lunch to A with getting into recliner. Pt declined att d/t pain 10/10 in legs. Nursing notified. EDDY PANTOJA ZOO KEEPER Nov 21, 2020 09:19
--- NOTE | 2020-11-21 11:42 | Physical Therapy Daily Note ---
PT Daily Note-Current Subjective Pt in recliner upon arrival. Pt reports pain 10/10 in L knee and nursing is notified. Is reluctant but agrees to tx. Pain Numeric Pain Scale: 10-Worst Possible Pain Location Body Site: Knee Pain Description: Sharp Mental Status Patient Orientation: Person, Place, Time Attachments: Oxygen (6), Bobby Catheter Transfers SCALE: Activities may be completed with or without assistive devices. 3-Xjwfumsgrc-bohvljy completes the activity by him/herself with no assistance from a helper. 5-Set-up or Clean-up Assistance-helper sets up or cleans up; patient completes activity. [place] assists only prior to or following the activity. 4-Supervision or Touching Assistance-helper provides verbal cues and/or touching/steadying and/or contact guard assistance as patient completes activity. Assistance may be provided throughout the activity or intermittently. 3-Partial/Moderate Assistance-helper does LESS THAN HALF the effort. [place] lifts, holds or supports trunk or limbs, but provides less than half the effort. 2-Substantial/Maximal Assistance-helper does MORE THAN HALF the effort. [place] lifts or holds trunk or limbs and provides more than half the effort. 9-Adunpqvqb-baynss does ALL the effort. Patient does none of the effort to complete the activity. Or, the assistance of 2 or more helpers is required for the patient to complete the activity. If activity was not attempted, code reason: 7-Patient Refused. 9-Not Applicable-not attempted and the patient did not perform the activity before the current illness, exacerbation or injury. 10-Not Attempted due to Environmental Limitations-(lack of equipment, weather restraints, etc.). 88-Not Attempted due to Medical Conditions or Safety Concerns. Exercises Supine Ex: Heel Slides, Short Arc Quads Supine Reps: 10 Seated Therapy Exercises: Ankle pumps, Hamstring Curls, Hip abd/add, Glut set Seated Reps: 10 Pt performed 10 reps each ex for R leg. L leg performed ankle pumps and hip abduction/adduction only. Treatments Pt performed supine and seated ex in recliner. Pt had call light in hand, all needs met post tx. Assessment Current Status: Poor Progress Pt limited activity d/t pain. Limited activity d/t language barrier. PT Half-Way Goals Half-Way Goals PT Camp Advisor Goals Time Frame: Dec 01, 2020 Roll Left & Right (QC): 6 Sit to Lying (QC): 6 Lying-Sitting on Side/Bed(QC): 6 Sit to Stand (QC): 6 Chair/Puz-ia-Hekvh Xfer(QC): 6 Toilet Transfer (QC): 6 Does the Patient Walk: Yes Walk 10 feet (QC): 6 Walk 50ft with 2 Turns (QC): 6 Walk 150 ft (QC): 6 PT Plan Problem List Problem List: Activity Tolerance, Functional Strength Treatment/Plan Treatment Plan: Continue Plan of Care Treatment Plan: Bed Mobility, Education, Functional Activity [place], Functional Strength, Gait, Safety, Therapeutic Exercise, Transfers Treatment Duration: Dec 01, 2020 Frequency: 6 times per week Estimated Hrs Per Day: .25 hour per day Patient and/or Family Agrees t: Yes Safety Risks/Education Patient Education: Correct Positioning, Safety Issues Teaching Recipient: Patient Teaching Methods: Demonstration Response to Teaching: Return Demonstration Time/GCodes Time In: 1127 Time Out: 1138 Total Billed Treatment Time: 11 Total Billed Treatment 1, Ex EDDY PANTOJA SUPPORT TEAM ASSOC Nov 21, 2020 11:42
--- NOTE | 2020-11-21 11:54 | Occupational Ther Daily Note ---
OT Current Status-Daily Note Subjective "My knee hurts. This is new." pt acknowledges 10/10 on verbal rating scale. Mental Status/Objective Patient Orientation: Person Unable to fully assess secondary to language barrier. Pt is able to speak some Icelandic, enough to make needs known. ADL-Treatment Therapy Code Descriptions/Definitions Functional [place] Measure: 0=Not Assessed/NA 4=Minimal Assistance 1=Total Assistance 5=Supervision or Setup 2=Maximal Assistance 6=Modified [place] 3=Moderate Assistance 7=Complete IndependenceSCALE: Activities may be completed with or without assistive devices. 3-Fzfuidnewi-tvnjslx completes the activity by him/herself with no assistance from a helper. 5-Set-up or Clean-up Assistance-helper sets up or cleans up; patient completes activity. [place] assists only prior to or following the activity. 4-Supervision or Touching Assistance-helper provides verbal cues and/or touching/steadying and/or contact guard assistance as patient completes activity. Assistance may be provided throughout the activity or intermittently. 3-Partial/Moderate Assistance-helper does LESS THAN HALF the effort. [place] lifts, holds or supports trunk or limbs, but provides less than half the effort. 2-Substantial/Maximal Assistance-helper does MORE THAN HALF the effort. [place] lifts or holds trunk or limbs and provides more than half the effort. 2-Hvcffmimh-xtcybz does ALL the effort. Patient does none of the effort to complete the activity. Or, the assistance of 2 or more helpers is required for the patient to complete the activity. If activity was not attempted, code reason: 7-Patient Refused. 9-Not Applicable-not attempted and the patient did not perform the activity before the current illness, exacerbation or injury. 10-Not Attempted due to Environmental Limitations-(lack of equipment, weather restraints, etc.). 88-Not Attempted due to Medical Conditions or Safety Concerns. Other Treatment At OT arrival, pt sitting in recliner on 6L o2 NC. She verbalizes new pain in L knee as 10/10. Grimacing noted with attempt to straighten or when putting recliner down. Pt declines attempt to stand secondary to increased pain. RN notified. Pt still reports pain in R shoulder and grimaces with light palpation to anterior shoulder. When asked if this is due to last fall, pt declines. Unsure if pt able to comprehend as she verbalizes that pain started over a month ago which is around the time when when she fell. Oral care and face washing performed at chair level with set up. No physical assist required. Pt expresses wanting to bathe tomorrow if pain subsides. Pt left sitting in recliner, education on positioning. All needs within reach, Physical Therapy entering room at ot departure. Education OT Patient Education: Correct positioning, Modified ADL techniques, Progress t oward Goal/Update tx plan, Purpose of tx/functional activities, Rehab process, Safety issues Teaching Recipient: Patient Teaching Methods: Discussion Response to Teaching: Verbalize Understanding, Reinforcement Needed OT Chcf Goals Chcf Goals Time Frame: Nov 30, 2020 Eating (QC): 6 Oral Hygiene (QC): 6 Toileting Hygiene (QC): 6 Shower/Bathe Self (QC): 6 Upper Body Dressing (QC): 6 Lower Body Dressing (QC): 6 On/Off Footwear (QC): 6 Additional Goals: 1-Demonstrate ADL Tasks, 2-Verbalize Understanding, 3- ImproveStrength/[place] 1=Demonstrate adherence to instructed precautions during ADL tasks. 2=Patient will verbalize/demonstrate understanding of assistive devices/modifications for ADL. 3=Patient will improve strength/tolerance for activity to enable patient to perform ADL's. OT Education/Plan Problem List/Assessment Assessment: Decreased Activ Tolerance, Decreased Safety Aware, Impaired Funct Balance, Impaired I ADL's, Impaired Self-Care Skills, Restricted Funct UE ROM RUE limited AROM secondary to pain. Able to perform 3/4 AROM Discharge Recommendations Plan/Recommendations: Continue POC Treatment Plan/Plan of Care Treatment,Training & Education: Yes Patient would benefit from OT for education, treatment and training to promote independence in ADL's, mobility, safety and/or upper extremity function for ADL's. Plan of Care: ADL Retraining, Functional Mobility, UE Funct Exercise/Act Treatment Duration: Nov 30, 2020 Frequency: 5 times per week Estimated Hrs Per Day: .25 hour per day Rehab Potential: Fair Time/GCodes Start Time: 11:10 Stop Time: 11:24 Total Time Billed (hr/min): 14 Billed Treatment Time 1, ADL (14 min) Padmini Melissa OT Nov 21, 2020 11:54
[2020-11-21 12:00] VITALS: BP 96/58
[2020-11-21] MEDS ORDERED: DICLOFENAC 1% GEL 100 GM (VOLTAREN) TUBE TOP PRN (12:00)
[2020-11-21 15:35] VITALS: BP 112/70
[2020-11-21 19:12] VITALS: BP 120/69
--- NOTE | 2020-11-21 21:33 | Progress Note - Hospitalist ---
Subjective HPI/CC On Admission Date Seen by Provider: Nov 21, 2020 Time Seen by Provider: 10:00 acute respiratory failure, hypoxia, PNA, sepsis Subjective/Events-last exam Pt doing a lot better Day #7 in the hospital stay Hgb 6.9 Has Stills Disease and has a lot of joint pain On 6 liters high flow Left knee pain will be provided Diclofenac gel Eating pretty well DC catheter Review of Systems General: Fatigue, Malaise Pulmonary: Dyspnea, Cough Focused Exam Time of Focused Exam: 07:45 Objective Exam Vital Signs Vital Signs Date Time Temp Pulse Resp B/P (MAP) Pulse Ox O2 Delivery O2 Flow Rate FiO2 11/22/20 04:32 36.8 98 22 103/65 (78) 92 Nasal Cannula 2.00 11/17/20 20:33 93 Capillary Refill : Greater Than 3 Seconds General Appearance: No Apparent Distress, WD/WN, Chronically ill Respiratory: No Accessory Muscle Use, No Respiratory Distress, Decreased Breath Sounds Cardiovascular: Regular Rate, Rhythm Neurologic/Psychiatric: Alert, Oriented x3, Depressed Affect Results/Procedures Lab Laboratory Tests 11/21/20 05:40 Patient resulted labs reviewed. Assessment/Plan Assessment and Plan Assess & Plan/Chief Complaint Pneumonia Hypoxia Debility Autoimmune disorder Stills disease Discontinue catheter Supportive care Monitor labs Check chest x-ray in the morning Critical Care Critically Ill Patient MARYLOU MULLIGAN DO Nov 21, 2020 21:33
[2020-11-22 00:36] VITALS: BP 110/67
[2020-11-22] MEDS: RT-ALBUTEROL SULF 2.5 MG/3 ML PRE-MIX VIAL INH PRN (03:53)
[2020-11-22] MEDS: CEFEPIME 1,000 MG/SWFI 10 ML IV PUSH IV SCH ×6 (03:57→17:43)
[2020-11-22 04:32] VITALS: BP 103/65
[2020-11-22 05:58] LABS: BASOPHILS % (AUTO) 0 % (0-10); EOSINOPHILS # (AUTO) 0.8 10^3/uL (0.0-0.3); EOSINOPHILS % (AUTO) 7 % (0-10); HEMATOCRIT 25 % (35-52); LYMPHOCYTES # (AUTO) 0.7 10^3/uL (1.0-4.0); LYMPHOCYTES % (AUTO) 7 % (12-44); MEAN CORPUSCULAR HEMOGLOBIN 24 pg (25-34); MEAN CORPUSCULAR HGB CONC 28 g/dL (32-36); MEAN CORPUSCULAR VOLUME 88 fL (80-99); MEAN PLATELET VOLUME 8.2 fL (9.0-12.2); MONOCYTES # (AUTO) 0.2 10^3/uL (0.0-1.0); MONOCYTES % (AUTO) 2 % (0-12); NEUTROPHILS # (AUTO) 8.4 10^3/uL (1.8-7.8); NEUTROPHILS % (AUTO) 82 % (42-75); PLATELET COUNT 241 10^3/uL (130-400); WHITE BLOOD COUNT 10.3 10^3/uL (4.3-11.0)
[2020-11-22] MEDS: LEVOTHYROXINE 100 MCG (LEVOTHROID) TAB PO SCH (06:11)
[2020-11-22 06:12] LABS: ALBUMIN 2.3 GM/DL (3.2-4.5)
[2020-11-22 06:13] LABS: POTASSIUM 4.2 MMOL/L (3.6-5.0)
[2020-11-22 06:14] LABS: CALCIUM 9.5 MG/DL (8.5-10.1)
[2020-11-22 06:17] LABS: BILIRUBIN,TOTAL 0.3 MG/DL (0.1-1.0)
[2020-11-22 06:19] LABS: CREATININE SERUM 0.61 MG/DL (0.60-1.30)
--- NOTE | 2020-11-22 07:41 | Progress Note - Hospitalist ---
KERRI HAWK MED STUDENT 11/22/20 0741: Subjective HPI/CC On Admission Date Seen by Provider: Nov 21, 2020 Time Seen by Provider: 08:45 acute respiratory failure, hypoxia, PNA, sepsis Subjective/Events-last exam This is Kaylynn a 55 yo female on day 7 of her hospital stay with the chief complaint of acute respiratory failure, hypoxia, PNA, and sepsis. Upon entering the room she was sitting up in bed eating breakfast. She was calm, cooperative, and engaged during questioning. Today she stated that her left knee and fingers bilaterally were causing pain, Her cough is still present but minimal. CXR com pleted today revealed increasing infiltrates. Review of Systems Musculoskeletal: hand pain (tips of fingers bilaterally), leg pain (L knee) Focused Exam Time of Focused Exam: 08:45 Respiratory: Chest Non Tender, Normal Breath Sounds, No Accessory Muscle Use, No Respiratory Distress, Crackles (throughout lung [place] bilaterally) Cardiovascular: Regular Rate, Rhythm, No Edema, No Gallop, No Murmur, Normal Peripheral Pulses Skin: normal color, warm/dry Objective Exam Vital Signs Vital Signs Date Time Temp Pulse Resp B/P (MAP) Pulse Ox O2 Delivery O2 Flow Rate FiO2 11/22/20 04:32 36.8 98 22 103/65 (78) 92 Nasal Cannula 2.00 11/17/20 20:33 93 Capillary Refill : Greater Than 3 Seconds General Appearance: No Apparent Distress, WD/WN, Chronically ill HEENT: PERRL/EOMI, Pharynx Normal Neck: Normal Inspection, Non Tender, Supple Respiratory: Chest Non Tender, Normal Breath Sounds, No Accessory Muscle Use, No Respiratory Distress, Crackles Cardiovascular: Regular Rate, Rhythm, No Edema, No Gallop, No Murmur, Normal Peripheral Pulses Gastrointestinal: Normal Bowel Sounds, Non Tender, Soft Rectal: Deferred Back: No Vertebral Tenderness Extremity: Normal Inspection, Non Tender, No Calf Tenderness, No Pedal Edema Neurologic/Psychiatric: Alert, Oriented x3, No Motor/Sensory Deficits, Normal Mood/Affect Skin: Normal Color, Warm/Dry Results/Procedures Lab Laboratory Tests 11/22/20 05:45 Patient resulted labs reviewed. Assessment/Plan Assessment and Plan Assess & Plan/Chief Complaint acute pneumonia continue antibiotic treatment- cefepime acute respiratory failure continue supplemental O2- currently on high flow of 6L right shoulder pain Stills Disease Pain/discomfort at the tips of the fingers bilaterally continue tylenol PRN L knee pain DVT prophylaxis lovenox hemolytic anemia Hgb of 6.9 on 11/21 blood pressure management norepi and vasopressin per protocol continue home medications encourage IS use encourage ambulation and decrease in supplemental O2 constipation- resolved add fiber supplementation nausea-resolved continue Zofran PRN D/C catheter continue PT/OT MILE MULLIGAN DO 11/23/20 0446: Supervisory-Addendum Brief Verification & Attestation Participated in pt care: history, MDM, physical Personally performed: exam, history, MDM, supervision of care Care discussed with: Medical Student Procedures: n/a Results interpretation: Verified all documentation Verification and Attestation of Medical Student E/M Service A medical student performed and documented this service in my presence. I reviewed and verified all information documented by the medical student and made modifications to such information, when appropriate. I personally performed the physical exam and medical decision making. Mile Mulligan, Nov 23, 2020,04:46 KERRI HAWK MED STUDENT Nov 22, 2020 07:41 MILE MULLIGAN DO Nov 23, 2020 04:46
[2020-11-22 08:00] VITALS: BP 92/47
--- NOTE | 2020-11-22 08:32 | Physical Therapy Daily Note ---
PT Daily Note-Current Subjective Pt in restroom upon arrival. Pt doesn't c/o any pain today and agrees to tx. Mental Status Patient Orientation: Person, Place, Time, Situation Attachments: Oxygen (3) Transfers SCALE: Activities may be completed with or without assistive devices. 2-Qkxkfdfoxy-ujmlbmq completes the activity by him/herself with no assistance from a helper. 5-Set-up or Clean-up Assistance-helper sets up or cleans up; patient completes activity. [place] assists only prior to or following the activity. 4-Supervision or Touching Assistance-helper provides verbal cues and/or touching/steadying and/or contact guard assistance as patient completes activity. Assistance may be provided throughout the activity or intermittently. 3-Partial/Moderate Assistance-helper does LESS THAN HALF the effort. [place] lifts, holds or supports trunk or limbs, but provides less than half the effort. 2-Substantial/Maximal Assistance-helper does MORE THAN HALF the effort. [place] lifts or holds trunk or limbs and provides more than half the effort. 3-Vzyobiisk-psfpcq does ALL the effort. Patient does none of the effort to complete the activity. Or, the assistance of 2 or more helpers is required for the patient to complete the activity. If activity was not attempted, code reason: 7-Patient Refused. 9-Not Applicable-not attempted and the patient did not perform the activity before the current illness, exacerbation or injury. 10-Not Attempted due to Environmental Limitations-(lack of equipment, weather restraints, etc.). 88-Not Attempted due to Medical Conditions or Safety Concerns. Sit to Stand (QC): 5 Gait Training Does the Patient Walk?: Yes Distance: 100' Walk 10 feet (QC): 4 Walk 50 ft with 2 Turns(QC): 4 Gait Assistive Device: FWW Pt amb w/ FWW in room with slow but steady gait Exercises Seated Therapy Exercises: Ankle pumps, Sit to stand, Long arc quads, Hip flexion, Hip abd/add Seated Reps: 10 Treatments Pt in bathroom upon arrival, required SBA for toileting and hand washing. Pt amb in room 100' SBA and returned to recliner. Pt performed seated ex x10 on B LE. Pt stayed in recliner to eat breakfast, left with call light in hand and all needs met. Assessment Current Status: Good Progress Pt had no c/o pain and able to amb today. Pt able to perform LE ex on B LE. Pt shows signs of weakness and fatigues easily. PT Equipment Operator [employer] Goals Residential Goals PT Residential Goals Time Frame: Dec 01, 2020 Roll Left & Right (QC): 6 Sit to Lying (QC): 6 Lying-Sitting on Side/Bed(QC): 6 Sit to Stand (QC): 6 Chair/Yje-ka-Xsaph Xfer(QC): 6 Toilet Transfer (QC): 6 Does the Patient Walk: Yes Walk 10 feet (QC): 6 Walk 50ft with 2 Turns (QC): 6 Walk 150 ft (QC): 6 PT Plan Problem List Problem List: Activity Tolerance Treatment/Plan Treatment Plan: Continue Plan of Care Treatment Plan: Bed Mobility, Education, Functional Activity [place], Functional Strength, Gait, Safety, Therapeutic Exercise, Transfers Treatment Duration: Dec 01, 2020 Frequency: 6 times per week Estimated Hrs Per Day: .25 hour per day Patient and/or Family Agrees t: Yes Safety Risks/Education Patient Education: Gait Training, Correct Positioning Teaching Recipient: Patient Teaching Methods: Demonstration, Discussion Response to Teaching: Verbalize Understanding, Return Demonstration Time/GCodes Time In: 814 Time Out: 826 Total Billed Treatment Time: 12 Total Billed Treatment 1, GT EDDY PANTOJA FIELD CROP HARVEST CONTRACTOR Nov 22, 2020 08:32
--- NOTE | 2020-11-22 11:21 | Occupational Ther Daily Note ---
OT Current Status-Daily Note Subjective Pt reports less pain in L knee and shoulder this date, but verbalizes new pain in antonio hands/fingertips. RN aware Mental Status/Objective Patient Orientation: Person, Place, Time, Situation Unable to fully assess cognition secondary to language barrier. Alert and oriented 4. ADL-Treatment Therapy Code Descriptions/Definitions Functional [place] Measure: 0=Not Assessed/NA 4=Minimal Assistance 1=Total Assistance 5=Supervision or Setup 2=Maximal Assistance 6=Modified [place] 3=Moderate Assistance 7=Complete IndependenceSCALE: Activities may be completed with or without assistive devices. 6-Wfdscdzevg-kexoffo completes the activity by him/herself with no assistance from a helper. 5-Set-up or Clean-up Assistance-helper sets up or cleans up; patient completes activity. [place] assists only prior to or following the activity. 4-Supervision or Touching Assistance-helper provides verbal cues and/or touching/steadying and/or contact guard assistance as patient completes activity. Assistance may be provided throughout the activity or intermittently. 3-Partial/Moderate Assistance-helper does LESS THAN HALF the effort. [place] lifts, holds or supports trunk or limbs, but provides less than half the effort. 2-Substantial/Maximal Assistance-helper does MORE THAN HALF the effort. [place] lifts or holds trunk or limbs and provides more than half the effort. 2-Zsjcoeewq-cjgwxh does ALL the effort. Patient does none of the effort to complete the activity. Or, the assistance of 2 or more helpers is required for the patient to complete the activity. If activity was not attempted, code reason: 7-Patient Refused. 9-Not Applicable-not attempted and the patient did not perform the activity before the current illness, exacerbation or injury. 10-Not Attempted due to Environmental Limitations-(lack of equipment, weather restraints, etc.). 88-Not Attempted due to Medical Conditions or Safety Concerns. Bathing Location: L Arm, R Arm, L Upper Leg, R Upper Leg, L Lower Leg (including foot), R Lower Leg (including foot), Chest, Abdomen, Buttocks, Perineal Area Lower Body Dressing (QC): 4 (Anticipate SUP for safety with clothing management. ) On/Off Footwear: 4 (Min a to adjust/pull up fully secondary to new pain in fingertips. Able to reach feet without diffiuclty. ) Other Treatment Pt agreeable to shower. Majority of task completed in sitting. Pt stood only briefly to wash kiran area/buttocks with single UE support on grab bar. No LOB, sup for safety. Pt able to reach all body parts without assist. Pt very thorough with task and washes body parts 2-3 times. Education on energy conservation strategies. She verbalizes owning a shower chair at home. She donned antonio socks with use of cross over method, extra time, and min A secondary to pain in fingertips when managing sock. New gown donned. Anticipate close sup for safety when donning pants. Pt c/o fatigue post adls and requests to return to chair. All needs within reach and RN notified at end of session. Pt on 3L NC during ADLS, appears to tolerate well. Returned to 2L once in chair. Sup/CGA for all mobility/transfers with use of FWW. Education OT Patient Education: Energy conservation, Modified ADL techniques, Progress toward Goal/Update tx plan, Purpose of tx/functional activities, Rehab process Teaching Recipient: Patient Teaching Methods: Discussion Response to Teaching: Verbalize Understanding, Return Demonstration OT Shelter Goals Recruitment Advertising Manager Goals Time Frame: Nov 30, 2020 Eating (QC): 6 Oral Hygiene (QC): 6 Toileting Hygiene (QC): 6 Shower/Bathe Self (QC): 6 Upper Body Dressing (QC): 6 Lower Body Dressing (QC): 6 On/Off Footwear (QC): 6 Additional Goals: 1-Demonstrate ADL Tasks, 2-Verbalize Understanding, 3-I mproveStrength/[place]eth[place] 1=Demonstrate adherence to instructed precautions during ADL tasks. 2=Patient will verbalize/demonstrate understanding of assistive devices/modifications for ADL. 3=Patient will improve strength/tolerance for activity to enable patient to perform ADL's. OT Education/Plan Problem List/Assessment Assessment: Decreased Activ Tolerance, Decreased UE Strength RUE limited AROM secondary to pain. Able to perform 3/4 AROM Discharge Recommendations Plan/Recommendations: Continue POC Treatment Plan/Plan of Care Treatment,Training & Education: Yes Patient would benefit from OT for education, treatment and training to promote independence in ADL's, mobility, safety and/or upper extremity function for ADL's. Plan of Care: ADL Retraining, Functional Mobility, UE Funct Exercise/Act Treatment Duration: Nov 30, 2020 Frequency: 5 times per week Estimated Hrs Per Day: .25 hour per day Agreement: Yes Rehab Potential: Good Time/GCodes Start Time: 09:59 Stop Time: 10:46 Total Time Billed (hr/min): 47 Billed Treatment Time 1, ADL x3 Padmini Melissa OT Nov 22, 2020 11:21
[2020-11-22 11:24] VITALS: BP 100/65
--- NOTE | 2020-11-22 13:40 | Physical Therapy Progress Note ---
Therapy Progress Note Pt in recliner upon arrival eating lunch at 1335. Request DIRECTOR UNDERWRITER SALES returns after she finishes eating. Will check back later. EDDY PANTOJA DIRECTOR UNDERWRITER SALES Nov 22, 2020 13:40
--- NOTE | 2020-11-22 13:59 | Progress Note - Hospitalist ---
KERRI HAWK MED STUDENT 11/22/20 1359: Subjective HPI/CC On Admission Date Seen by Provider: Nov 22, 2020 Time Seen by Provider: 09:30 acute respiratory failure, hypoxia, PNA, sepsis Subjective/Events-last exam This is Kaylynn a 55 yo female on day 8 of her hospital stay with the chief complaint of acute respiratory failure, hypoxia, PNA, and sepsis. Upon entering the room she was sitting in the chair eating breakfast. She was calm, cooperative, and engaged during questioning. She is having bilateral foot pain and bilateral fingertip pain that she described as terrible. She had no concerns with SOB, nausea and vomiting, or BMs. SHhe continues to improve on oxygen demand at 92% O2 saturation on 2L N/C. Review of Systems Musculoskeletal: hand pain (bilateral fingertip pain), foot pain (bilateral foot pain) Focused Exam Time of Focused Exam: 09:00 Respiratory: Chest Non Tender, Lungs Clear, No Accessory Muscle Use, No Respiratory Distress, Decreased Breath Sounds Cardiovascular: Regular Rate, Rhythm, No Edema, No Gallop, No Murmur, Normal Peripheral Pulses Skin: normal color, warm/dry Objective Exam Vital Signs Vital Signs Date Time Temp Pulse Resp B/P (MAP) Pulse Ox O2 Delivery O2 Flow Rate FiO2 11/22/20 11:24 36.2 98 20 100/65 (77) 94 High Flow N/C 2.00 11/17/20 20:33 93 Capillary Refill : Greater Than 3 Seconds General Appearance: No Apparent Distress, WD/WN, Chronically ill HEENT: PERRL/EOMI, Pharynx Normal Neck: Normal Inspection, Non Tender, Supple Respiratory: Chest Non Tender, Normal Breath Sounds, No Accessory Muscle Use, No Respiratory Distress, Decreased Breath Sounds Cardiovascular: Regular Rate, Rhythm, No Edema, No Gallop, No Murmur, Normal Peripheral Pulses Gastrointestinal: Normal Bowel Sounds, Non Tender, Soft Rectal: Deferred Back: No Vertebral Tenderness Extremity: Normal Inspection, Non Tender, No Calf Tenderness, No Pedal Edema, Other (bilateral fingertip and foot pain) Neurologic/Psychiatric: Alert, Oriented x3, No Motor/Sensory Deficits, Normal Mood/Affect Skin: Normal Color, Warm/Dry Results/Procedures Lab Laboratory Tests 11/22/20 05:45 Patient resulted labs reviewed. Assessment/Plan Assessment and Plan Assess & Plan/Chief Complaint acute pneumonia continue antibiotic treatment- cefepime acute respiratory failure continue supplemental O2- currently on 2L N/C right shoulder pain bilateral foot pain Stills Disease Pain/discomfort at the tips of the fingers bilaterally continue tylenol PRN L knee pain DVT prophylaxis lovenox hemolytic anemia Hgb of 7.0 on 11/22 blood pressure management norepi and vasopressin per protocol continue home medications encourage IS use encourage ambulation and decrease in supplemental O2 constipation- resolved add fiber supplementation nausea-resolved continue Zofran PRN continue PT/OT Home O2 study MILE MULLIGAN DO 11/23/20 0559: Subjective Subjective/Events-last exam Pt doing a lot better Down to two liters Hgb 7.0 Eating well Home O2 will be needed so will arrange that Discharge probably tomorrow Review of Systems General: Fatigue, Malaise Objective Exam General Appearance: No Apparent Distress, WD/WN, Chronically ill Respiratory: Normal Breath Sounds Cardiovascular: Regular Rate, Rhythm Neurologic/Psychiatric: Alert, Oriented x3, Depressed Affect Assessment/Plan Assessment and Plan Assess & Plan/Chief Complaint Discharge planning Supervisory-Addendum Brief Verification & Attestation Participated in pt care: history, MDM, physical Personally performed: exam, history, MDM, supervision of care Care discussed with: Medical Student Procedures: n/a Results interpretation: Verified all documentation Verification and Attestation of Medical Student E/M Service A medical student performed and documented this service in my presence. I reviewed and verified all information documented by the medical student and made modifications to such information, when appropriate. I personally performed the physical exam and medical decision making. Mile Mulligan, Nov 23, 2020,05:58 KERRI HAWK MED STUDENT Nov 22, 2020 13:59 MILE MULLIGAN DO Nov 23, 2020 05:59
[2020-11-22 16:36] VITALS: BP 105/65
[2020-11-22 19:03] VITALS: BP 116/72
[2020-11-22] MEDS: ACETAMINOPHEN 325 MG TABLET PO PRN (23:46)
[2020-11-23] VITALS: BP 112/60
[2020-11-23 04:23] VITALS: BP 117/62
[2020-11-23] MEDS: LEVOTHYROXINE 100 MCG (LEVOTHROID) TAB PO SCH (05:32)
[2020-11-23 06:26] LABS: BASOPHILS % (AUTO) 0 % (0-10); EOSINOPHILS % (AUTO) 13 % (0-10); HEMATOCRIT 25 % (35-52); LYMPHOCYTES # (AUTO) 0.7 10^3/uL (1.0-4.0); LYMPHOCYTES % (AUTO) 9 % (12-44); MEAN CORPUSCULAR HEMOGLOBIN 24 pg (25-34); MEAN CORPUSCULAR HGB CONC 27 g/dL (32-36); MEAN CORPUSCULAR VOLUME 88 fL (80-99); MEAN PLATELET VOLUME 8.4 fL (9.0-12.2); MONOCYTES # (AUTO) 0.2 10^3/uL (0.0-1.0); MONOCYTES % (AUTO) 3 % (0-12); NEUTROPHILS # (AUTO) 5.1 10^3/uL (1.8-7.8); NEUTROPHILS % (AUTO) 71 % (42-75); PLATELET COUNT 262 10^3/uL (130-400); WHITE BLOOD COUNT 7.2 10^3/uL (4.3-11.0)
[2020-11-23 06:34] LABS: HEMOGLOBIN 6.9 g/dL (11.5-16.0)
[2020-11-23 06:35] LABS: ALBUMIN 2.4 GM/DL (3.2-4.5); POTASSIUM 3.9 MMOL/L (3.6-5.0)
[2020-11-23 06:36] LABS: CALCIUM 9.7 MG/DL (8.5-10.1)
[2020-11-23 06:38] LABS: TOTAL PROTEIN 6.2 GM/DL (6.4-8.2)
[2020-11-23 06:40] LABS: BILIRUBIN,TOTAL 0.3 MG/DL (0.1-1.0)
[2020-11-23 06:41] LABS: CREATININE SERUM 0.68 MG/DL (0.60-1.30)
[2020-11-23 07:05] LABS: ANISOCYTOSIS SLIGHT; EOSINOPHILS % (MANUAL) 10 %; HYPOCHROMASIA SLIGHT; LYMPHOCYTES % (MANUAL) 9 %; METAMYELOCYTES % 3 %; MONOCYTES % (MANUAL) 3 %; NEUTROPHILS % (MANUAL) 75 %
[2020-11-23 07:30] VITALS: BP 101/63
--- NOTE | 2020-11-23 11:03 | Physical Therapy Daily Note ---
PT Daily Note-Current Subjective Pt in recliner and agrees to tx. Pt c/o pain in L knee and R shoulder 11/06. Son entered room at end of tx. Pain Numeric Pain Scale: 8 Location: Right, Left Location Body Site: Knee Pain Description: Ache Mental Status Patient Orientation: Person, Place, Time, Situation Attachments: Oxygen (2) Transfers SCALE: Activities may be completed with or without assistive devices. 9-Fkecvinfjp-ujxmtjj completes the activity by him/herself with no assistance from a helper. 5-Set-up or Clean-up Assistance-helper sets up or cleans up; patient completes activity. [place] assists only prior to or following the activity. 4-Supervision or Touching Assistance-helper provides verbal cues and/or touching/steadying and/or contact guard assistance as patient completes activity. Assistance may be provided throughout the activity or intermittently. 3-Partial/Moderate Assistance-helper does LESS THAN HALF the effort. [place] lifts, holds or supports trunk or limbs, but provides less than half the effort. 2-Substantial/Maximal Assistance-helper does MORE THAN HALF the effort. [place] lifts or holds trunk or limbs and provides more than half the effort. 3-Wkaaatiih-gcabfj does ALL the effort. Patient does none of the effort to complete the activity. Or, the assistance of 2 or more helpers is required for the patient to complete the activity. If activity was not attempted, code reason: 7-Patient Refused. 9-Not Applicable-not attempted and the patient did not perform the activity before the current illness, exacerbation or injury. 10-Not Attempted due to Environmental Limitations-(lack of equipment, weather restraints, etc.). 88-Not Attempted due to Medical Conditions or Safety Concerns. Sit to Stand (QC): 5 Gait Training Does the Patient Walk?: Yes Distance: 200' Walk 10 feet (QC): 4 Walk 50 ft with 2 Turns(QC): 4 Walk 150 ft (QC): 4 Gait Assistive Device: FWW Pt amb in room with FWW requiring CGA. Pt shows slight antalgic gait d/t pain in L knee. Pt has slow, shuffling gait. Exercises Supine Ex: Heel Slides, Hip abd/add Supine Reps: 10 Seated Therapy Exercises: Ankle pumps, Long arc quads, Hip flexion Seated Reps: 10 Treatments Pt amb in room 200', and returned to recliner. Pt performed seated ex followed by supine ex. Pt left in recliner with all needs met, call light in hand. Assessment Current Status: Good Progress Pt limited d/t pain, fatigue, and language barriers. PT Correction Goals Correction Goals PT Digital Sales Planner Goals Time Frame: Dec 01, 2020 Roll Left & Right (QC): 6 Sit to Lying (QC): 6 Lying-Sitting on Side/Bed(QC): 6 Sit to Stand (QC): 6 Chair/Dbi-gj-Krqyo Xfer(QC): 6 Toilet Transfer (QC): 6 Does the Patient Walk: Yes Walk 10 feet (QC): 6 Walk 50ft with 2 Turns (QC): 6 Walk 150 ft (QC): 6 PT Plan Problem List Problem List: Activity Tolerance, Functional Strength Treatment/Plan Treatment Plan: Continue Plan of Care Treatment Plan: Bed Mobility, Education, Functional Activity [place], Functional Strength, Gait, Safety, Therapeutic Exercise, Transfers Treatment Duration: Dec 01, 2020 Frequency: 6 times per week Estimated Hrs Per Day: .25 hour per day Patient and/or Family Agrees t: Yes Safety Risks/Education Patient Education: Gait Training, Correct Positioning Teaching Recipient: Patient Teaching Methods: Demonstration Response to Teaching: Return Demonstration Time/GCodes Time In: 1041 Time Out: 1054 Total Billed Treatment Time: 13 Total Billed Treatment 1, GT EDDY PANTOJA PHOTOENGRAVING APPRENTICE Nov 23, 2020 11:03
[2020-11-23 11:25] VITALS: BP 101/62
--- NOTE | 2020-11-23 11:28 | Discharge Summary ---
Discharge Summary Hospital Course Was the Problem List Reviewed?: Yes Problems/Dx: (1) Sepsis Status: Acute Qualifiers: Qualified Codes: A41.9 - Sepsis, unspecified organism; R65.20 - Severe sepsis without septic shock; J96.01 - Acute respiratory failure with hypoxia (2) Acute pneumonia Status: Acute (3) Acute respiratory failure with hypoxemia Status: Acute (4) Hypothyroidism Status: Chronic (5) Hemolytic anemia Status: Chronic Hospital Course Date of Admission: Nov 15, 2020 at 16:00 Admission Diagnosis : Family Physician/Provider: [place] [place] Date of Discharge: 11/23/20 Discharge Diagnosis: Sepsis, pneumonia, acute hypoxic respiratory failure, immunocompromised, history of hemolytic anemia, autoimmune pulmonary pneumonitis Hospital Course: Hospital course: Pt had an uneventful hospital course after she was admitted to the ICU for acute respiratory failure with findings consistent with some sort of auto-immune pneumonitis. She was fully supported with ICU care and oxygen supplementation ultimately after a slow recovery with PT and OT she was able to be discharged in improved condition on four liters of continuous oxygen and will be monitored closely. Labs and Pending Lab Test: Laboratory Tests 11/23/20 05:50: White Blood Count 7.2, Red Blood Count 2.87L, Hemoglobin 6.9*L, Hematocrit 25L, Mean Corpuscular Volume 88, Mean Corpuscular Hemoglobin 24L, Mean Corpuscular Hemoglobin Concent 27L, Red Cell Distribution Width 19.9H, Platelet Count 262, Mean Platelet Volume 8.4L, Immature Granulocyte % (Auto) 4, Neutrophils (%) (Auto) 71, Lymphocytes (%) (Auto) 9L, Monocytes (%) (Auto) 3, Eosinophils (%) (Auto) 13H, Basophils (%) (Auto) 0, Neutrophils # (Auto) 5.1, Lymphocytes # (Auto) 0.7L, Monocytes # (Auto) 0.2, Eosinophils # (Auto) 1.0H, Basophils # (Auto) 0.0, Immature Granulocyte # (Auto) 0.3H, Neutrophils % (Manual) 75, Lymphocytes % (Manual) 9, Monocytes % (Manual) 3, Eosinophils % (Manual) 10, Metamyelocytes % 3, Hypochromasia SLIGHT, Anisocytosis SLIGHT, Sodium Level 130L , Potassium Level 3.9, Chloride Level 102, Carbon Dioxide Level 22, Anion Gap 6, Blood Urea Nitrogen 11, Creatinine 0.68, Estimat Glomerular Filtration Rate 90, BUN/Creatinine Ratio 16, Glucose Level 81, Calcium Level 9.7, Corrected Calcium 11.0H, Total Bilirubin 0.3, Aspartate Amino Transf (AST/SGOT) 30, Alanine Aminotransferase (ALT/SGPT) 10, Alkaline Phosphatase 69, Total Protein 6.2L, Albumin 2.4L Microbiology 11/15/20 MRSA Screen - Final, Complete MRSA not isolated 11/15/20 Urine Culture - Final, Complete NO GROWTH 11/15/20 Blood Culture - Final, Complete No growth Home Meds Active Reported Vitamin D2 (Ergocalciferol (Vitamin D2)) 1,250 Mcg Capsule 1,250 Mcg PO SUN Ondansetron HCl 4 Mg Tablet 4 Mg PO Q8H PRN Levothyroxine Sodium 100 Mcg Tablet 100 Mcg PO DAILY Assessment/Pt Instructions [facility] in 1 week Discharge Planning: <30 minutes discharge planning Discharge Physical Examination Vital Signs Vital Signs Date Time Temp Pulse Resp B/P (MAP) Pulse Ox O2 Delivery O2 Flow Rate FiO2 11/23/20 08:00 Nasal Cannula 2.00 11/23/20 07:30 36.6 98 18 101/63 (76) 83 11/17/20 20:33 93 General Appearance: No Apparent Distress, WD/WN, Chronically ill Respiratory: Lungs Clear Cardiovascular: Regular Rate, Rhythm Neurologic/Psychiatric: Alert, Oriented x3 Allergies: Coded Allergies: No Known Drug Allergies (Unverified , 11/15/20) Discharge Summary Date of Admission Nov 15, 2020 at 16:00 Date of Discharge Discharge Date: Nov 23, 2020 Comfort Measures/ Time spent on discussion (min): 0 Discharge Diagnosis Discharge planning MARYLOU MULLIGAN DO Nov 23, 2020 11:28
--- NOTE | 2020-11-23 12:01 | Occupational Ther Daily Note ---
OT Current Status-Daily Note Subjective Pt reports less pain in L knee and R shoulder but continues to verbalize discomfort in antonio hands/fingertips, Left worse than Right. No numerical value given for pain. Mental Status/Objective Patient Orientation: Person, Place, Time, Situation ADL-Treatment Therapy Code Descriptions/Definitions Functional [place] Measure: 0=Not Assessed/NA 4=Minimal Assistance 1=Total Assistance 5=Supervision or Setup 2=Maximal Assistance 6=Modified [place] 3=Moderate Assistance 7=Complete IndependenceSCALE: Activities may be completed with or without assistive devices. 3-Xcqcleldjs-bdbrkuy completes the activity by him/herself with no assistance from a helper. 5-Set-up or Clean-up Assistance-helper sets up or cleans up; patient completes activity. [place] assists only prior to or following the activity. 4-Supervision or Touching Assistance-helper provides verbal cues and/or touching/steadying and/or contact guard assistance as patient completes activity. Assistance may be provided throughout the activity or intermittently. 3-Partial/Moderate Assistance-helper does LESS THAN HALF the effort. [place] lifts, holds or supports trunk or limbs, but provides less than half the effort. 2-Substantial/Maximal Assistance-helper does MORE THAN HALF the effort. [place] lifts or holds trunk or limbs and provides more than half the effort. 8-Gfavjatuz-eeiiby does ALL the effort. Patient does none of the effort to complete the activity. Or, the assistance of 2 or more helpers is required for the patient to complete the activity. If activity was not attempted, code reason: 7-Patient Refused. 9-Not Applicable-not attempted and the patient did not perform the activity before the current illness, exacerbation or injury. 10-Not Attempted due to Environmental Limitations-(lack of equipment, weather restraints, etc.). 88-Not Attempted due to Medical Conditions or Safety Concerns. Oral Hygiene (QC): 4 (Supervision only) Toileting Hygiene (QC): 4 (Supervision for safety only) Toilet Transfer (QC): 6 Other Treatment Pt ambulated to/from bathroom with use of FWW and SBA. Min verbal cues for improved walker management/placement at sink/toilet. Good standing tolerance during oral care and face washing at sink. Pt able to manage clothing management and perform kiran care post toilet without assist. continues to demonstrate reduced overall activity tolerance and requires reminders on energy conservation strategies. Pt verbalizes possible D/C home later today. Pt left sitting in recliner, all needs within reach. RN notified. Pt on 2L o2 throughout adls, appears to tolerate well. Education OT Patient Education: Energy conservation, Modified ADL techniques, Progress toward Goal/Update tx plan, Purpose of tx/functional activities Teaching Recipient: Patient Teaching Methods: Discussion Response to Teaching: Verbalize Understanding OT Care Home Goals Care Home Goals Time Frame: Nov 30, 2020 Eating (QC): 6 Oral Hygiene (QC): 6 Toileting Hygiene (QC): 6 Shower/Bathe Self (QC): 6 Upper Body Dressing (QC): 6 Lower Body Dressing (QC): 6 On/Off Footwear (QC): 6 Additional Goals: 1-Demonstrate ADL Tasks, 2-Verbalize Understanding, 3- ImproveStrength/Bethany 1=Demonstrate adherence to instructed precautions during ADL tasks. 2=Patient will verbalize/demonstrate understanding of assistive devices/modifications for ADL. 3=Patient will improve strength/tolerance for activity to enable patient to perform ADL's. OT Education/Plan Problem List/Assessment Assessment: Decreased Activ Tolerance RUE limited AROM secondary to pain. Able to perform 3/4 AROM Discharge Recommendations Plan/Recommendations: Continue POC Therapy Discharge Recommendati: Homemaker Support, Home & Family Treatment Plan/Plan of Care Treatment,Training & Education: Yes Patient would benefit from OT for education, treatment and training to promote independence in ADL's, mobility, safety and/or upper extremity function for ADL's. Plan of Care: ADL Retraining, Functional Mobility, UE Funct Exercise/Act Treatment Duration: Nov 30, 2020 Frequency: 5 times per week Estimated Hrs Per Day: .25 hour per day Agreement: Yes Rehab Potential: Good Time/GCodes Start Time: 09:40 Stop Time: 09:54 Total Time Billed (hr/min): 14 Billed Treatment Time 1, ADL x1 Padmini Melissa OT Nov 23, 2020 12:01
--- NOTE | 2020-11-23 13:51 | Progress Note ---
KERRI HAWK MED STUDENT 11/23/20 1351: Progress Note This is Kaylynn a 55 yo female on day 9 of her hospital stay being discharged home. She presented to the ER on 11/15 and was admitted with the chief complaints of acute respiratory failure, hypoxia, and PNA, and sepsis. Patient was brought to the ER by EMS from her primary care provider with chief complaint that her PCP noticed that she was having difficulty breathing and oxygen saturations in the 80s. She was there for a scheduled checkup. She has been on steroids and had a case of shingles before admission. She complained of having low back pain which she associates with her coughing. She stated that the week prior to going to the ER she was having shortness of air and coughing but did not think much of it. She has a history of hemolytic anemia and has needed transfusions in the past month or 2 at [facility] transfusions. She didn't receive any transfusions during her hospital stay but remained anemic. 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 She was admitted to the ICU were she required extensive care and vapotherm to maintain adequate O2 saturation.CXR on 11/15 revealed bilateral interstitial opacities and small volume pleural effusions that are related to congestive heart failure with interstitial edema. Interstitial infiltrate is an additional consideration. Pt was placed on cefepime throughout stay for appropriate antibacterial coverage. There wad no growth on MRSA screen or peripheral blood cultures. Chest CTA on 11/15 revealed no pulmonary emboli to the level of segmental arteries, no acute aortic syndrome, and bilateral pulmonary consolidations could be on the basis of multifocal pneumonia versus edema. CXR on 11/16 revealed increased aeration of lungs with diffuse interstitial opacities throughout both lungs compatible with pulmonary edema or multifocal pneumonia. Pt continued to improve and require less supplemental O2. CXR on 11/21 revealed increasing infiltrates. She worked with PT/OT extensively to recover strength. A home O2 study was completed. Upon discharge home this morning she was requiring 2L via N/C with a O2 saturation of 98%. There was continued joint pain especially at the fingertips bilaterally. She needs to schedule continued follow ups for anemia and Still disease management. MILE MULLIGAN DO 11/24/20 0631: Supervisory-Addendum Brief Verification & Attestation Participated in pt care: history, MDM, physical Personally performed: exam, history, MDM, supervision of care Care discussed with: Medical Student Procedures: n/a Results interpretation: Verified all documentation Verification and Attestation of Medical Student E/M Service A medical student performed and documented this service in my presence. I reviewed and verified all information documented by the medical student and made modifications to such information, when appropriate. I personally performed the physical exam and medical decision making. Mile Mulligan, Nov 24, 2020,06:31 KERRI HAWK MED STUDENT Nov 23, 2020 13:51 MILE MULLIGAN DO Nov 24, 2020 06:31
[2020-11-23 14:03] VITALS: BP 101/62
== END 2020-11-23 14:30 | disposition home or self-care (01) | DRG 871 ==
LOC: ER 14:31 → ICU 16:00 → 4TH 11-20 13:24
PROVIDERS: ADMIT Family Medicine; ATTEND Internal Medicine
PROC: 5A09457 Assistance with Respiratory Ventilation, 24-96 Consecutive Hours, Continuous Positive Airway Pressure (ICD-10-PCS; principal; 2020-11-15)
DX: A41.9 Sepsis, unspecified organism (principal); J18.9 Pneumonia, unspecified organism; J96.01 Acute respiratory failure with hypoxia; K92.1 Melena; D58.9 Hereditary hemolytic anemia, unspecified; E03.9 Hypothyroidism, unspecified; R65.20 Severe sepsis without septic shock; M25.511 Pain in right shoulder; M79.672 Pain in left foot; M79.671 Pain in right foot; M08.20 Juvenile rheumatoid arthritis with systemic onset, unspecified site; M25.561 Pain in right knee; R11.0 Nausea; Z20.822 Contact with and (suspected) exposure to COVID-19; J84.10 Pulmonary fibrosis, unspecified; R53.81 Other malaise; D89.89 Other specified disorders involving the immune mechanism, not elsewhere classified
CPT/HCPCS: 36415; 51702; 71045; 71275; 80053; 81000; 82728; 82805; 83605; 83735; 83880; 84100; 84145; 85007; 85025; 85027; 85379; 85610; 85730; 86141; 86850; 86900; 86901; 86920; 86922; 87040; 87070; 87081; 87088; 87205; 87636; 93306; 94640; 94660; 94664; 94760; 94761; 96361; 96365; 96375; 99291

== ENCOUNTER 2020-12-09 18:36 | Emergency (ER) | payer OTHER ==
[~2020-12-09] VITALS: Ht 149 cm; Wt 61.0 kg
[~2020-12-09 18:36] MED LIST: ERGO1250 PO; LEVO100T7 PO; ONDA-105 PO
--- NOTE | 2020-12-09 19:13 | ED General ---
General Stated Complaint: ADULT ON-STILLS DISEASE SYMPTOMS/BONE PAIN/FEVER Source of Information: Patient, Family Exam Limitations: Language Barrier History of Present Illness Date Seen by Provider: Dec 09, 2020 Time Seen by Provider: 18:55 Initial Comments Patient is a 55-year-old female who presents with her son today who acts as senior mortgage underwriter as the patient is Tajik-speaking. Chief complaint fevers, generalized weakness, increasing shortness of breath over the last week. Son s tates that she has a history of adult onset stills disease. Was recently in the hospital with pneumonia and released 2 weeks ago. Follows at [place] for her stills disease. Chronically anemic with hemoglobins ranging between 6 and 8. 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 States that she has been constipated recently straining and had a little blood per rectum but no black stool. Patient denies any pain currently. She is a little bit dyspneic. She is coughing. She is not Covid vaccinated. Son is not Covid vaccinated. Went to the clinic clinic for the above-stated complaints today and sent to the emergency room for further evaluation. Patient is chronically on oxygen at 4 L per nasal cannula but her son has increased it over the last couple of days to 5 L. Spiking fevers twice a day up to 103. Got a varicella vaccination about a week ago and has a plaque like dermatitis to the right neck and upper shoulder. No chest pain, is short of breath. No leg swelling. No urinary complaints. No diarrhea. Has had a good appetite. Is not currently on any medications. Has only been taking Tylenol for fever last dose was on Thursday 3 days ago. All other review of systems reviewed and negative except as stated Timing/Duration: 1 Week Severity: Moderate Modifying Factors: improves with Immobilization; worse with Movement Associated Systoms: Cough, Headaches, Malaise, Shortness of Air, Weakness Allergies and Home Medications Allergies Coded Allergies: No Known Drug Allergies (Unverified , 11/15/20) Patient Home Medication List Home Medication List Reviewed: Yes Ergocalciferol (Vitamin D2) (Vitamin D2) 1,250 Mcg Capsule, 1,250 MCG PO SUN, (Reported) Entered as Reported by: SIRISHA KRAFT on 11/16/20 1032 Levothyroxine Sodium (Levothyroxine Sodium) 100 Mcg Tablet, 100 MCG PO DAILY, (Reported) Entered as Reported by: SIRISHA KRAFT on 11/16/20 1032 Ondansetron HCl (Ondansetron HCl) 4 Mg Tablet, 4 MG PO Q8H PRN for NAUSEA/ VOMITING-1ST LINE, (Reported) Entered as Reported by: SIRISHA KRAFT on 11/16/20 1032 Review of Systems Review of Systems Constitutional: see HPI, chills, fever, malaise, weakness EENTM: no symptoms reported Respiratory: cough, dyspnea on exertion, phlegm, short of breath Cardiovascular: no symptoms reported Gastrointestinal: no symptoms reported Genitourinary: no symptoms reported : No Musculoskeletal: no symptoms reported Skin: rash All Other Systems Reviewed Negative Unless Noted: Yes Past Pnnazhs-Uqxacl-Ordeet Hx Immunizations Up To Date First/Initial COVID19 Vaccinat: NOT VACCINATED Past Medical History Surgery/Hospitalization HX: HOSPITALIZATION - SOA, HYPOXIA, FEVER; 03/2020: ANEMIA, FEVERS, HYPOXIA; 2018: ANEMIA, O+ BLOOD WITH ALLERGIC REACTION TO ANTIBODY PANAGGLUTININ SURGERIES: CHOLECYSTECTOMY (2017) Family Medical History Diabetes Physical Exam Vital Signs Vital Signs - First Documented Capillary Refill : Height, Weight, BMI Height: '" Weight: lbs. oz. kg; 24.00 BMI Method: General Appearance: No Apparent Distress, WD/WN Eyes: Bilateral Eye Normal Inspection, Bilateral Eye PERRL, Bilateral Eye EOMI HEENT: PERRL/EOMI Neck: Normal Inspection Respiratory: Crackles (occasional crackles at bases bilateralloy, no repiratory distress.) Cardiovascular: Regular Rate, Rhythm, Tachycardia Gastrointestinal: Normal Bowel Sounds, Non Tender, Soft Extremity: Normal Inspection, Normal Range of Motion Neurologic/Psychiatric: Alert, Oriented x3, No Motor/Sensory Deficits, Normal Mood/Affect Skin: Normal Color, Warm/Dry, Rash (plaque like rash to the right neck, not excorialted or blistered or draining) Focused Exam Lactate Level 12/09/20 19:30: Lactic Acid Level 1.17 Lactic Acid Level Laboratory Tests Test 12/09/20 19:30 Lactic Acid Level 1.17 MMOL/L (0.50-2.00) Progress/Results/Core Measures Suspected Sepsis SIRS Temperature: Pulse: Respiratory Rate: Laboratory Tests 12/09/20 19:30: White Blood Count 7.8 Blood Pressure / Mean: 9/12/21 19:30: Lactic Acid Level 1.17 Laboratory Tests 12/09/20 19:30: Creatinine 0.76, INR Comment 1.0, Platelet Count 358, Total Bilirubin 0.3 Results/Orders Lab Results Laboratory Tests Test 12/09/20 18:51 12/09/20 19:30 12/09/20 19:40 Range/Units Influenza Type A (RT-PCR) Not Detected Not Detecte Influenza Type B (RT-PCR) Not Detected Not Detecte SARS-CoV-2 RNA (RT-PCR) Not Detected Not Detecte White Blood Count 7.8 4.3-11.0 10^3/uL Red Blood Count 3.26 L 3.80-5.11 10^6/uL Hemoglobin 7.6 L 11.5-16.0 g/dL Hematocrit 27 L 35-52 % Mean Corpuscular Volume 83 80-99 fL Mean Corpuscular Hemoglobin 23 L 25-34 pg Mean Corpuscular Hemoglobin Concent 28 L 32-36 g/dL Red Cell Distribution Width 19.5 H 10.0-14.5 % Platelet Count 358 130-400 10^3/uL Mean Platelet Volume 8.0 L 9.0-12.2 fL Immature Granulocyte % (Auto) 3 % Neutrophils (%) (Auto) 79 H 42-75 % Lymphocytes (%) (Auto) 8 L 12-44 % Monocytes (%) (Auto) 4 0-12 % Eosinophils (%) (Auto) 6 0-10 % Basophils (%) (Auto) 0 0-10 % Neutrophils # (Auto) 6.1 1.8-7.8 10^3/uL Lymphocytes # (Auto) 0.6 L 1.0-4.0 10^3/uL Monocytes # (Auto) 0.3 0.0-1.0 10^3/uL Eosinophils # (Auto) 0.5 H 0.0-0.3 10^3/uL Basophils # (Auto) 0.0 0.0-0.1 10^3/uL Immature Granulocyte # (Auto) 0.3 H 0.0-0.1 10^3/uL Neutrophils % (Manual) 75 % Lymphocytes % (Manual) 6 % Monocytes % (Manual) 5 % Eosinophils % (Manual) 5 % Band Neutrophils 6 % Atypical Lymphocytes 1 % Blast Cells 2 % Toxic Granulation 1+ Platelet Estimate Polychromasia SLIGHT Hypochromasia SLIGHT Basophilic Stippling SLIGHT Anisocytosis SLIGHT Microcytosis Macrocytosis Erythrocyte Sedimentation Rate > 140 H 0-30 MM/HR Prothrombin Time 13.8 12.2-14.7 SEC INR Comment 1.0 0.8-1.4 Activated Partial Thromboplast Time 35 24-35 SEC Sodium Level 128 L 135-145 MMOL/L Potassium Level 4.0 3.6-5.0 MMOL/L Chloride Level 96 L 98-107 MMOL/L Carbon Dioxide Level 21 21-32 MMOL/L Anion Gap 11 5-14 MMOL/L Blood Urea Nitrogen 12 7-18 MG/DL Creatinine 0.76 0.60-1.30 MG/DL Estimat Glomerular Filtration Rate 79 BUN/Creatinine Ratio 16 Glucose Level 89 70-105 MG/DL Lactic Acid Level 1.17 0.50-2.00 MMOL/L Calcium Level 10.0 8.5-10.1 MG/DL Corrected Calcium 11.0 H 8.5-10.1 MG/DL Total Bilirubin 0.3 0.1-1.0 MG/DL Aspartate Amino Transf (AST/SGOT) 50 H 5-34 U/L Alanine Aminotransferase (ALT/SGPT) 12 0-55 U/L Alkaline Phosphatase 82 40-136 U/L C-Reactive Protein High Sensitivity 8.42 H 0.00-0.50 MG/DL Total Protein 7.6 6.4-8.2 GM/DL Albumin 2.8 L 3.2-4.5 GM/DL Procalcitonin 0.52 H <0.10 NG/ML Urine Color YELLOW Urine Clarity CLEAR Urine pH 6.0 5-9 Urine Specific [place] 1.020 1.016-1.022 Urine Protein 1+ H NEGATIVE Urine Glucose (UA) NEGATIVE NEGATIVE Urine Ketones TRACE H NEGATIVE Urine Nitrite NEGATIVE NEGATIVE Urine Bilirubin NEGATIVE NEGATIVE Urine Urobilinogen 0.2 < = 1.0 MG/DL Urine Leukocyte Esterase NEGATIVE NEGATIVE Urine RBC (Auto) NEGATIVE NEGATIVE Urine RBC 0-2 /HPF Urine WBC 5-10 H /HPF Urine Squamous Epithelial Cells 0-2 /HPF Urine Crystals NONE /LPF Urine Calcium Oxalate Crystals MODERATE H /LPF Urine Bacteria MODERATE H /HPF Urine Casts NONE /LPF Urine Mucus NEGATIVE /LPF Urine Culture Indicated YES My Orders Orders - ARMANDO TIM MD Cbc With Automated Diff (12/09/20 19:07) Comprehensive Metabolic Panel (12/09/20 19:07) Blood Culture (12/09/20 19:07) Sputum Culture (12/09/20 19:07) Urinalysis (12/09/20 19:07) Urine Culture (12/09/20 19:07) Protime With Inr (12/09/20 19:07) Partial Thromboplastin Time (12/09/20 19:07) Chest 1 View, Ap/Pa Only (12/09/20 19:07) Ed Iv/Invasive Line Start (12/09/20 19:07) Ed Iv/Invasive Line Start (12/09/20 19:07) Vital Signs Adult Sepsis Patie Q15M (12/09/20 19:07) O2 (12/09/20 19:07) Remove Rings In Anticipation O (12/09/20 19:07) Lactic Acid Analyzer (12/09/20 19:07) Ferritin (12/09/20 19:07) Hs C Reactive Protein (12/09/20 19:07) Erythrocyte Sedimentation Rate (12/09/20 19:07) Procalcitonin (Pct) (12/09/20 19:07) Ns Iv 1000 Ml (Sodium Chloride 0.9%) (12/09/20 19:15) Ibuprofen Tablet (Motrin Tablet) (12/09/20 19:15) Covid 19 Inhouse Test (12/09/20 19:13) Influenza A And B By Pcr (12/09/20 19:13) Isolation Central Supply Req (12/09/20 19:13) Manual Differential (12/09/20 19:30) Medications Given in ED Current Medications Medications Dose Ordered Sig/Lyn Route Start Time Stop Time Status Last Admin Dose Admin Ibuprofen 600 mg ONCE ONCE PO 12/09/20 19:15 12/09/20 19:16 DC 12/09/20 19:29 600 MG Vital Signs/I&O 12/09/20 12/09/20 12/09/20 18:50 18:50 18:50 Temp 37.6 Pulse 110 Resp 20 B/P (MAP) 110/72 (85) Pulse Ox 97 97 O2 Delivery Nasal Cannula Nasal Cannula Nasal Cannula O2 Flow Rate 5.00 5.00 5.00 Capillary Refill : Progress Note : Time: 21:30 Progress Note Discussed with Dr Kincaid. States patient clinical picture is too complicated for our facility. Requests, if needs admission, transfer to a tertiary care center that has rheumatologic capability. [phone] call made to [facility] to speak with the team that has been caring for patient. awaiting a call back. [phone] Discussed patient's case with Dr. Thompson on for rheumatology at [facility] in [place]. Advised him of her recent clinical course of community-acquired pneumonia in the setting of her stills disease, subsequent decline over the last week. Advised him that she has been out of her prednisone, 20 mg daily. That I am not concerned for sepsis at this time. He recommends restarting her on her 20 mg of prednisone daily. Also recommends to call Dr. Mcmillan tomorrow for further direction on treatment. Son has already sent a message via the patient portal to her pillowcase cleaner. And she is out of her levothyroxine 125 mcg. We will go ahead and send a prescription for that as well to her [facility] pharmacy. Son seems happy with this plan of care. Patient continues to appear nontoxic. Satting 97% on 5 L. Advised him to also call [facility] tomorrow and see if they can help her with an oxygen concentrator that is portable as well as may be investigate some home health aide for her at home with her ADLs. All questions are sought and answered. Patient looks good. Patient is stable for discharge. Diagnostic Imaging Diagonstic Imaging: Xray Plain Films/CT/US/NM/MRI: chest Comments [facility]. [place], [place] NAME: LALIT LAI [facility] REC#: [id number] PT STATUS: REG ER : 1965 PHYSICIAN: ARMANDO TIM MD ADMIT DATE: 12/09/20/ER Signed Date of Exam:12/09/20 CHEST 1 VIEW, AP/PA ONLY EXAMINATION: Chest 1 view. HISTORY: Sepsis. COMPARISON: 11/21/2020. FINDINGS: There is cardiomegaly with central pulmonary vascular congestion and interstitial and alveolar opacities throughout the lungs, left greater than right. Overall these are decreased compared to the prior exam. No large pleural effusion or pneumothorax. IMPRESSION: Decreasing mixed opacities throughout the lungs, left greater than right. Findings may represent improving edema or infection. Dictated by: Dictated on workstation # [id number] Dict: 12/09/201922 Trans: 12/09/201932 [facility] [id number] Interpreted by: KISHOR REID DO Electronically signed by: KISHOR REID DO 12/09/201932 Departure Impression Primary Impression: Dyspnea and respiratory abnormalities Additional Impression: Adult-onset Still's disease Disposition: HOME, SELF-CARE Condition: Stable Departure-Patient Inst. Decision time for Depature: 22:02 Referrals: [facility] (PCP/Family) Primary Care Physician Patient Instructions: Shortness of Breath (Dyspnea) Add. Discharge Instructions: She needs to be on an acid clerk carrier daily such as pepcid while she is taking her prednisone. Pepcid 20mg once a day (generic, over the counter). Ibuprofen (generic) 400mg (2 tablets) every 6 hours with food for fever. Prednisone 20mg once a day. I have also sent a prescription for her thyroid medication to [facility], 125mcg Levothyroxine. If she becomes more short of breath, increased coughing or distress, please bring her back to the Emergency Department for re-evaluation. Please call and speak with someone at [facility] about 1) getting her on a portable oxygen concentrator and 2) options for home health aid. Please follow up with her doctor at [facility] tomorrow as well. Scripts Levothyroxine Sodium (Levothyroxine) 125 Mcg Capsule 125 MCG PO DAILY, #30 CAP Prov: ARMANDO TIM MD 12/09/20 Prednisone (Prednisone) 20 Mg Tab 20 MG PO DAILY, #30 TAB Take one pill a day Prov: ARMANDO TIM MD 12/09/20 ARMANDO TIM MD Dec 09, 2020 19:13
[2020-12-09] MEDS ORDERED: IBUPROFEN 600 MG (MOTRIN) TAB PO ONE (19:15)
[2020-12-09] MEDS ORDERED: NS IV 1000 ML 1,000 ML IV SCH (19:15)
--- NOTE | 2020-12-09 19:27 | Diagnostic Imaging Report ---
EXAMINATION: Chest 1 view. HISTORY: Sepsis. COMPARISON: 11/21/2020. FINDINGS: There is cardiomegaly with central pulmonary vascular congestion and interstitial and alveolar opacities throughout the lungs, left greater than right. Overall these are decreased compared to the prior exam. No large pleural effusion or pneumothorax. IMPRESSION: Decreasing mixed opacities throughout the lungs, left greater than right. Findings may represent improving edema or infection. Dictated by: Dictated on workstation # [id number]
[2020-12-09 19:57] LABS: BASOPHILS % (AUTO) 0 % (0-10); EOSINOPHILS # (AUTO) 0.5 10^3/uL (0.0-0.3); EOSINOPHILS % (AUTO) 6 % (0-10); HEMATOCRIT 27 % (35-52); HEMOGLOBIN 7.6 g/dL (11.5-16.0); LYMPHOCYTES # (AUTO) 0.6 10^3/uL (1.0-4.0); LYMPHOCYTES % (AUTO) 8 % (12-44); MEAN CORPUSCULAR HEMOGLOBIN 23 pg (25-34); MEAN CORPUSCULAR HGB CONC 28 g/dL (32-36); MEAN CORPUSCULAR VOLUME 83 fL (80-99); MONOCYTES # (AUTO) 0.3 10^3/uL (0.0-1.0); MONOCYTES % (AUTO) 4 % (0-12); NEUTROPHILS # (AUTO) 6.1 10^3/uL (1.8-7.8); NEUTROPHILS % (AUTO) 79 % (42-75); PLATELET COUNT 358 10^3/uL (130-400); WHITE BLOOD COUNT 7.8 10^3/uL (4.3-11.0)
[2020-12-09 20:02] LABS: BILIRUBIN,URINE NEGATIVE (NEGATIVE); CLARITY,URINE CLEAR; COLOR,URINE YELLOW; GLUCOSE, URINE (UA) NEGATIVE (NEGATIVE); KETONES,URINE TRACE (NEGATIVE); LEUKOCYTE ESTERASE ,URINE NEGATIVE (NEGATIVE); NITRITE,URINE NEGATIVE (NEGATIVE); PROTEIN,URINE 1+ (NEGATIVE)
[2020-12-09 20:10] LABS: PROTHROMBIN TIME PATIENT 13.8 SEC (12.2-14.7)
[2020-12-09 20:15] LABS: ALBUMIN 2.8 GM/DL (3.2-4.5); BILIRUBIN,TOTAL 0.3 MG/DL (0.1-1.0); CREATININE SERUM 0.76 MG/DL (0.60-1.30); TOTAL PROTEIN 7.6 GM/DL (6.4-8.2)
[2020-12-09 20:42] LABS: BACTERIA,URINE MODERATE /HPF; RBC,URINE 0-2 /HPF; SQUAMOUS EPITHELIAL CELL,UR 0-2 /HPF
[2020-12-09 20:43] LABS: CALCIUM OXALATE CRYSTALS,UR MODERATE /LPF
[2020-12-09 20:50] LABS: ERYTHROCYTE SEDIMENTATION RATE > 140 MM/HR (0-30)
[2020-12-09 21:05] LABS: ANISOCYTOSIS SLIGHT; ATYPICAL LYMPHOCYTES 1 %; BAND NEUTROPHILS 6 %; BLAST CELLS 2 %; EOSINOPHILS % (MANUAL) 5 %; HYPOCHROMASIA SLIGHT; LYMPHOCYTES % (MANUAL) 6 %; MONOCYTES % (MANUAL) 5 %; NEUTROPHILS % (MANUAL) 75 %; POLYCHROMASIA SLIGHT
[2020-12-09 21:07] LABS: TOXIC GRANULATION/VACUOLAZATIO 1+
[2020-12-09] MEDS ORDERED: predniSONE 20 MG TAB PO ONE (22:00)
[2020-12-09] MEDS ORDERED: LEVO125C4 PO (22:07)
[2020-12-09] MEDS ORDERED: PRD20T PO (22:07)
[2020-12-09 22:23] VITALS: BP 104/55
== END 2020-12-09 22:23 | disposition home or self-care (01) ==
LOC: EDUNIT# 18:36 → ER 18:41
DX: R06.00 Dyspnea, unspecified (principal); R06.9 Unspecified abnormalities of breathing; M06.1 Adult-onset Still's disease; Z20.822 Contact with and (suspected) exposure to COVID-19
CPT/HCPCS: 36415; 51702; 71045; 80053; 81000; 82728; 83605; 84145; 85007; 85027; 85610; 85652; 85730; 86141; 87040; 87088; 87636

== ENCOUNTER 2021-08-13 12:26 | Outpatient (RCR) | payer OTHER ==
[~2021-08-13 12:26] MED LIST changes: +LEVO125C4 PO; +PRD20T PO
[2021-08-14 15:14] LABS: BASOPHILS % (AUTO) 0 % (0-10); EOSINOPHILS # (AUTO) 0.4 10^3/uL (0.0-0.3); EOSINOPHILS % (AUTO) 3 % (0-10); HEMATOCRIT 21 % (35-52); LYMPHOCYTES # (AUTO) 0.7 X 10^3 (1.0-4.0); LYMPHOCYTES % (AUTO) 5 % (12-44); MEAN CORPUSCULAR HEMOGLOBIN 24 pg (25-34); MEAN CORPUSCULAR HGB CONC 31 g/dL (32-36); MEAN CORPUSCULAR VOLUME 78 fL (80-99); MEAN PLATELET VOLUME 9.3 fL (9.0-12.2); MONOCYTES # (AUTO) 0.7 X 10^3 (0.0-1.0); MONOCYTES % (AUTO) 6 % (0-12); NEUTROPHILS # (AUTO) 10.1 X 10^3 (1.8-7.8); NEUTROPHILS % (AUTO) 85 % (42-75); PLATELET COUNT 237 10^3/uL (130-400); WHITE BLOOD COUNT 11.9 10^3/uL (4.3-11.0)
[2021-08-14 15:27] LABS: ALBUMIN 3.2 GM/DL (3.2-4.5); HEMOGLOBIN 6.5 g/dL (11.5-16.0); POTASSIUM 3.4 MMOL/L (3.6-5.0)
[2021-08-14 15:31] LABS: BILIRUBIN,TOTAL 0.7 MG/DL (0.1-1.0); CALCIUM 8.6 MG/DL (8.5-10.1); TOTAL PROTEIN 8.9 GM/DL (6.4-8.2)
[2021-08-14 15:33] LABS: CREATININE SERUM 1.48 MG/DL (0.60-1.30)
[2021-08-14 15:36] LABS: MAGNESIUM 1.7 MG/DL (1.6-2.4)
[2021-08-14 15:40] LABS: EOSINOPHILS % (MANUAL) 5 %; LYMPHOCYTES % (MANUAL) 2 %; MONOCYTES % (MANUAL) 6 %; NEUTROPHILS % (MANUAL) 87 %; POLYCHROMASIA SLIGHT
[2021-08-14 15:58] LABS: FREE T4 (FREE THYROXINE) 1.26 NG/DL (0.70-1.48)
== END 2021-08-27 | disposition home or self-care (01) ==
LOC: LAB 12:26
PROVIDERS: ATTEND Pediatrics
DX: M06.1 Adult-onset Still's disease (principal)
CPT/HCPCS: 36415; 80053; 80061; 82306; 83036; 83735; 84439; 84443; 85007; 85027; 87040; 87798; 87799; 87912; 88184; 88185